=== PATIENT | female | born 1930 | race Caucasian/White ===

== ENCOUNTER 2016-10-16 10:51 | Emergency (ER) | payer OTHER ==
[2016-10-16 11:05] VITALS: TEMP 97.7
[2016-10-16 11:39] LABS: COLOR RED; LEUKOCYTE ESTERASE,URINE 3+ (NEGATIVE); NITRITE,URINE NEGATIVE (NEGATIVE)
[2016-10-16 11:44] LABS: BACTERIA 1+ /hpf (NONE SEEN); RBC,URINE 50-182 /hpf (0-3); WBC,URINE 50-182 /hpf (0-3)
--- NOTE | 2016-10-16 12:02 | EDPHY ---
H & P Time Seen by Provider: 10/16/16 11:15 HPI/ROS: CHIEF COMPLAINT: Blood in urine HISTORY OF PRESENT ILLNESS: History of previous UTI. As some hematuria this morning but without flank pain or fever. REVIEW OF SYSTEMS: No nausea or vomiting or other bleeding PAST MEDICAL HISTORY: Hypertension, thyroid, stroke, TIA, dementia Social history: Here with her . They live in [place] for 50 years. General Appearance: Alert and conversant, cooperative. No abdominal tenderness and no CVA tenderness Emergency Department course/MDM: Urinalysis reviewed shows 3+ leukocyte esterase and 50-182 white blood cells and 50-182 RBC with 1+ bacteria. Macrobid and urine culture and primary care follow-up at [facility]. Does not have presentation of sepsis or pyelonephritis. Smoking Status: Never smoked Constitutional: Initial Vital Signs Temperature (C) 36.5 C 10/16/16 11:03 Heart Rate 83 10/16/16 11:03 Respiratory Rate 18 10/16/16 11:03 Blood Pressure 165/100 H 10/16/16 11:03 O2 Sat (%) 94 10/16/16 11:03 O2 Delivery Mode Room Air Allergies/Adverse Reactions: Sulfa (Sulfonamide Antibiotics) Allergy (Unknown, Verified 02/17/14 13:55) Home Medications: Medication Instructions Recorded Ascorbic Acid [Vitamin C 500 mg 500 mg PO DAILY 08/24/12 (*)] Clopidogrel Bisulfate [Plavix (*)] 75 mg PO DAILY 08/24/12 FLUoxetine [Prozac 10 MG (*)] 10 mg PO DAILY 08/24/12 LORazepam [Ativan (*)] 1 mg PO HS 08/24/12 Levothyroxine [Synthroid 88 mcg 44 mcg PO DAILY06 08/24/12 (*)] Lisinopril/Hydrochlorothiazide 1 each PO DAILY 08/24/12 [Lisinopril-Hctz 10-12.5 mg Tab] Multivitamins [Multivitamin (*)] 1 each PO DAILY 08/24/12 Simvastatin [Zocor 10 mg] 10 mg PO HS 08/24/12 Nitrofurantoin Macrobid [Macrobid] 100 mg PO Q12 #14 cap 10/16/16 MDM/Departure - Depart Disposition: Home, Routine, Self-Care Clinical Impression: Urinary tract infection Condition: Good Instructions: Urinary Tract Infection in Women (ED) Prescriptions: Nitrofurantoin Macrobid [Macrobid] 100 mg PO Q12 #14 cap Referrals: IN STATE,. [Primary Care Provider] - As per Instructions BEN NAVARRETE [Non Staff Provider (MD)] - As per Instructions
[2016-10-16 12:12] VITALS: BP 160/89; PULSE 80; RESP 16; O2SAT 95
== END 2016-10-16 12:11 | disposition home or self-care (01) ==
DX: N39.0 Urinary tract infection, site not specified (principal); B96.20 Unspecified Escherichia coli [E. coli] as the cause of diseases classified elsewhere; I10 Essential (primary) hypertension; Z86.73 Personal history of transient ischemic attack (TIA), and cerebral infarction without residual deficits

== ENCOUNTER 2016-11-25 03:45 | Inpatient (IN) | payer OTHER ==
--- NOTE | 2016-11-25 04:07 | EDPHY ---
H & P HPI/ROS: Chief Complaint: Left-sided weakness HPI: A 86-year-old female with a history of CVA in the past, last seen normal when she went to bed at 9:30 a.m. last evening. Patient woke up this morning to go to the bathroom. states that she was unable to the affectively get to the bathroom. She fell when she tried to get up and had to crawl to the bathroom. helped her onto the toilet. She fell again at that point. Did not hit her head. No loss of consciousness. She was incontinent of urine in the bathroom. EMS was called. On EMS arrival the patient was noted to have a left facial droop left arm and left leg weakness. She was unable to ambulate on her own. Stroke alert was called by EMS. Patient has otherwise been in her usual state of health. She does have a history of prior CVAs in the past with no residual neurologic deficits. ROS: 10 point Review of Systems is negative except as noted in the HPI. PMH: CVA, hypertension, hypothyroidism, hyperlipidemia Medications: Simvastatin, lorazepam, lisinopril, hydrochlorothiazide, levothyroxine, fluoxetine, clopidogrel, ascorbic acid Allergies: Sulfa Social History: No smoking, no alcohol, no recreational drug use, lives with her Family History: non-contributory Physical Exam: Gen: Awake, Alert, No Distress HEENT: Nose: no rhinorrhea Eyes: PERRLA, EOMI Mouth: Moist mucosa Neck: Supple, no JVD Chest: nontender, lungs clear to auscultation Heart: S1, S2 normal, no murmur Abd: Soft, non-tender, no guarding Back: no CVA tenderness, no midline tenderness Ext: no edema, non-tender Skin: no rash Neuro: See NIH stroke score - Medical/Surgical History Hx Asthma: No Hx Chronic Respiratory Disease: No Hx Diabetes: No Hx Cardiac Disease: Yes Hx Renal Disease: No Hx Cirrhosis: No Hx Alcoholism: No Hx HIV/AIDS: No Hx Splenectomy or Spleen Trauma: No Other PMH: htn, hypothyroid, stroke 4 yrs ago, [place], [place], depression, dementia - Social History Smoking Status: Never smoked Constitutional: Initial Vital Signs Temperature (C) 36.0 C 11/25/16 03:45 Heart Rate 71 11/25/16 03:45 Respiratory Rate 18 11/25/16 03:45 Blood Pressure 179/115 H 11/25/16 03:45 O2 Sat (%) 93 11/25/16 03:45 O2 Delivery Mode Room Air Allergies/Adverse Reactions: Sulfa (Sulfonamide Antibiotics) Allergy (Unknown, Verified 11/25/16 04:55) Home Medications: Medication Instructions Recorded Ascorbic Acid [Vitamin C 500 mg 500 mg PO DAILY 08/24/12 (*)] Clopidogrel Bisulfate [Plavix (*)] 75 mg PO DAILY 08/24/12 FLUoxetine [Prozac 10 MG (*)] 10 mg PO DAILY 08/24/12 LORazepam [Ativan (*)] 1 mg PO HS 08/24/12 Levothyroxine [Synthroid 88 mcg 44 mcg PO DAILY06 08/24/12 (*)] Lisinopril/Hydrochlorothiazide 1 each PO DAILY 08/24/12 [Lisinopril-Hctz 10-12.5 mg Tab] Multivitamins [Multivitamin (*)] 1 each PO DAILY 08/24/12 Simvastatin [Zocor 10 mg] 10 mg PO HS 08/24/12 Medical Decision Making ED Course/Re-evaluation: 0346 patient arise, an H assessment done in the [facility]. NIH stroke score noted to be 1. Patient's symptoms are significantly improved from when EMS 1st encounter at her. [address] Dr. Anibal Hills, [facility]. We discussed the fact that the patient was last seen normal at 930 last night. We also discussed the fact that the patient's NIH scale right now is 1. He agrees given the length the time of possible onset and low NIH scale we will stand down the stroke alert at this time. He he is recommending to proceed with the CT and CT angiogram as the patient's renal function is appropriate with a BUN and creatinine is [address] Magaña. No acute bleed or lesions noted. He will review the CT angiogram. 0515 patient's condition has not changed. I have discussed with Lauren at the [facility] telemedicine service. They are happy for the patient to stay at [facility] for her inpatient evaluation. I have paged the hospitalist. [address] Crocker, hospitalist. He will admit to his service. He would like a baby aspirin now. He will see in the ED. Critical Care Time: I spent a total of 40 minutes of critical care time in obtaining history, performing a physical exam, bedside monitoring of interventions, collecting and interpreting tests and discussion with consultants but not including time spent performing procedures. - Data Points Laboratory Results: Laboratory Results 11/25/16 03:40 11/25/16 03:40 11/25/16 11/25/16 11/25/16 04:25 03:46 03:40 WBC RBC Hgb POC Hgb 15.0 gm/dL gm/dL (12.3-15.9) Hct POC Hct 44 % % (35.5-47.5) MCV MCH MCHC RDW Plt Count MPV Neut % (Auto) Lymph % (Auto) O'Brien % (Auto) Eos % (Auto) Baso % (Auto) Nucleat RBC Rel Count Absolute Neuts (auto) Absolute Lymphs (auto) Absolute Monos (auto) Absolute Eos (auto) Absolute Basos (auto) Absolute Nucleated RBC Immature Gran % Immature Gran # POC Sodium 143 mEq/L mEq/L (134-144) Sodium 143 mEq/L mEq/L (134-144) POC Potassium 3.8 mEq/L mEq/L (3.3-5.0) Potassium 4.2 mEq/L mEq/L (3.5-5.2) POC Chloride 107 mEq/L mEq/L (96-108) Chloride 108 mEq/L mEq/L (97-110) Carbon Dioxide 25 mEq/l mEq/l (22-31) Anion Gap 10 mEq/L mEq/L (8-16) POC BUN 17 mg/dL mg/dL (7-23) BUN 18 mg/dL mg/dL (7-23) Creatinine 0.8 mg/dL mg/dL (0.6-1.0) POC Creatinine 0.9 mg/dL mg/dL (0.6-1.2) Estimated GFR > 60 Glucose 86 mg/dL mg/dL (70-100) POC Glucose 90 mg/dL mg/dL (70-100) Calcium 9.5 mg/dL mg/dL (8.5-10.4) Total Bilirubin 1.0 mg/dL mg/dL (0.1-1.4) Conjugated Bilirubin 0.3 mg/dL mg/dL (0.0-0.5) Unconjugated Bilirubin 0.7 mg/dL mg/dL (0.0-1.1) AST 23 IU/L IU/L (14-46) ALT 22 IU/L IU/L (9-52) Alkaline Phosphatase 82 IU/L IU/L (38-126) Total Protein 6.5 g/dL g/dL (6.3-8.2) Albumin 3.9 g/dL g/dL (3.5-5.0) Lipase 227.0 IU/L IU/L (23-300) Urine Color COLORLESS Urine Appearance CLEAR Urine pH 8.0 H (5.0-7.5) Ur Specific [place] 1.021 (1.002-1.030) Urine Protein NEGATIVE (NEGATIVE) Urine Ketones NEGATIVE (NEGATIVE) Urine Blood NEGATIVE (NEGATIVE) Urine Nitrate NEGATIVE (NEGATIVE) Urine Bilirubin NEGATIVE (NEGATIVE) Urine Urobilinogen NEGATIVE EU EU (0.2-1.0) Ur Leukocyte Esterase NEGATIVE (NEGATIVE) Urine Glucose NEGATIVE (NEGATIVE) 11/25/16 03:40 WBC 6.21 10^3/uL 10^3/uL (3.80-9.50) RBC 4.94 10^6/uL 10^6/uL (4.18-5.33) Hgb 14.5 g/dL g/dL (12.6-16.3) POC Hgb Hct 44.1 % % (38.0-47.0) POC Hct MCV 89.3 fL fL (81.5-99.8) MCH 29.4 pg pg (27.9-34.1) MCHC 32.9 g/dL g/dL (32.4-36.7) RDW 14.4 % % (11.5-15.2) Plt Count 255 10^3/uL 10^3/uL (150-400) MPV 10.7 fL fL (8.7-11.7) Neut % (Auto) 42.5 % % (39.3-74.2) Lymph % (Auto) 40.7 % % (15.0-45.0) O'Brien % (Auto) 11.4 % % (4.5-13.0) Eos % (Auto) 3.4 % % (0.6-7.6) Baso % (Auto) 1.8 % H % (0.3-1.7) Nucleat RBC Rel Count 0.0 % % (0.0-0.2) Absolute Neuts (auto) 2.64 10^3/uL 10^3/uL (1.70-6.50) Absolute Lymphs (auto) 2.53 10^3/uL 10^3/uL (1.00-3.00) Absolute Monos (auto) 0.71 10^3/uL 10^3/uL (0.30-0.80) Absolute Eos (auto) 0.21 10^3/uL 10^3/uL (0.03-0.40) Absolute Basos (auto) 0.11 10^3/uL H 10^3/uL (0.02-0.10) Absolute Nucleated RBC 0.00 10^3/uL 10^3/uL (0-0.01) Immature Gran % 0.2 % % (0.0-1.1) Immature Gran # 0.01 10^3/uL 10^3/uL (0.00-0.10) POC Sodium Sodium POC Potassium Potassium POC Chloride Chloride Carbon Dioxide Anion Gap POC BUN BUN Creatinine POC Creatinine Estimated GFR Glucose POC Glucose Calcium Total Bilirubin Conjugated Bilirubin Unconjugated Bilirubin AST ALT Alkaline Phosphatase Total Protein Albumin Lipase Urine Color Urine Appearance Urine pH Ur Specific [place] Urine Protein Urine Ketones Urine Blood Urine Nitrate Urine Bilirubin Urine Urobilinogen Ur Leukocyte Esterase Urine Glucose Point of Care Test Results: 11/25/16 03:46 POC Sodium 143 POC Potassium 3.8 POC Chloride 107 POC BUN 17 POC Creatinine 0.9 POC Glucose 90 Departure - Departure Disposition: [facility] Inpatient Acute Clinical Impression: Transient cerebral ischemia Condition: Fair Referrals: Patient,NotPresent [Primary Care Provider] - As per Instructions NIH Stroke Scale Date of Exam: 11/25/16 Time of Exam: 03:46 Level of Consciousness: Alert LOC Questions: Answers Both LOC Commands: Performs Both Correctly Best Gaze: Normal Visual: No Visual Loss Facial Palsy: Normal Motor Arm-Left: No Drift Motor Arm-Right: Drift Motor Leg-Left: No Drift Motor Leg-Right: No Drift Limb Ataxis: Absent Sensory: Normal Best Language: No Aphasia Dysarthria: Normal Extinction and Inattention (Neglect): No Abnormality NIH Scale Score: 1
[2016-11-25 04:10] LABS: % IMMATURE GRANULYOCYTES 0.2 % (0.0-1.1); ABSOLUTE IMMATURE GRANULOCYTES 0.01 10^3/uL (0.00-0.10); ADD DIFF? NO; ADD MORPH? NO; ADD SCAN? NO; ATYPICAL LYMPHOCYTE FLAG 10 (0-99); FRAGMENT RBC FLAG 0 (0-99); HEMATOCRIT 44.1 % (38.0-47.0); HEMOGLOBIN 14.5 g/dL (12.6-16.3); LEFT SHIFT FLG 0 (0-99); LIPEMIA HEMOLYSIS FLAG 80 (0-99); MEAN CELL HEMOGLOBIN 29.4 pg (27.9-34.1); MEAN CELL HEMOGLOBIN CONCENTR. 32.9 g/dL (32.4-36.7); MEAN CELL VOLUME 89.3 fL (81.5-99.8); MEAN PLATELET VOLUME 10.7 fL (8.7-11.7); PLATELET CLUMPS FLAG 20 (0-99); PLATELET COUNT 255 10^3/uL (150-400); RED BLOOD CELL COUNT 4.94 10^6/uL (4.18-5.33); RED CELL DISTRIBUTION WIDTH 14.4 % (11.5-15.2)
[2016-11-25 04:15] LABS: ALANINE AMINOTRANSFERASE 22 IU/L (9-52); ALBUMIN 3.9 g/dL (3.5-5.0); ALKALINE PHOSPHATASE 82 IU/L (38-126); ANION GAP 10 mEq/L (8-16); ASPARTATE AMINOTRANSFERASE 23 IU/L (14-46); BILIRUBIN-CONJUGATED 0.3 mg/dL (0.0-0.5); BILIRUBIN-UNCONJUGATED 0.7 mg/dL (0.0-1.1); CALCIUM 9.5 mg/dL (8.5-10.4); CARBON DIOXIDE 25 mEq/l (22-31); CHLORIDE 108 mEq/L (97-110); CREATININE 0.8 mg/dL (0.6-1.0); GLOMERULAR FILTRATION RATE > 60; GLUCOSE 86 mg/dL (70-100); POTASSIUM 4.2 mEq/L (3.5-5.2); SODIUM 143 mEq/L (134-144); TOTAL PROTEIN 6.5 g/dL (6.3-8.2)
[2016-11-25 05:03] LABS: COLOR COLORLESS; LEUKOCYTE ESTERASE,URINE NEGATIVE (NEGATIVE); NITRITE,URINE NEGATIVE (NEGATIVE)
[2016-11-25] MEDS ORDERED: ASPIRIN EC 81 MG TAB PO ONE (05:22)
--- NOTE | 2016-11-25 05:34 | CPEKG ---
Heart Rate: 69 RR Interval: 870 P-R Interval: 196 QRSD Interval: 106 QT Interval: 448 QTC Interval: 480 P Allardt: 55 QRS Allardt: -22 T Wave Allardt: 55 EKG Severity - NORMAL ECG - EKG Impression: SINUS RHYTHM Electronically Signed By: Kwame Inman 25-Nov-2016 06:09:22
[2016-11-25] MEDS ORDERED: ONDANSETRON 4 MG/2 ML VIAL IVP PRN (06:19)
[2016-11-25] MEDS ORDERED: ONDANSETRON DISINTEGRATING 4 MG TAB PO PRN (06:19)
[2016-11-25] MEDS ORDERED: NS W/ 20 KCl/L 1,000 ML IV SCH (06:30)
[2016-11-25 06:39] LABS: CHOLESTEROL 139 mg/dL (140-220); CHOLESTEROL/HDL RATIO 2.44 RATIO (1.00-4.44); HIGH DENSITY LIPOPROTEIN 57 mg/dL (40-85); LDL/HDL RATIO 1.07 RATIO (1.00-3.22); LOW DENSITY LIPOPROTEIN 61 mg/dL (80-100); NON-HIGH DENSITY LIPOPROTEIN 82 mg/dL (90-129); TRIGLYCERIDE 107 mg/dL (35-135); VERY LOW DENSITY LIPOPROTEINS 21 mg/dL (8-25)
[2016-11-25 06:51] LABS: TROPONIN I 0.016 ng/mL (0-0.034)
--- NOTE | 2016-11-25 07:22 | PDGENHP ---
History and Physical - Chief Complaint Acute weakness - History of Present Illness PCP: [facility] HPI: 86 yo F p/w acute weakness characterized as generalized with inability to ambulate, assoc w/ a mechanical fall and urinary incontinence, onset of symptoms at 3:30 a.m. on the morning of presentation. Duration was unclear, as her last "normal" time was when she went to bed at 9:30 p.m. 11/24. She reports she had been feeling well on 11/24, w/o any symptoms. Her gave her a glass of water prior to bed (which is a bit atypical for her), and this resulted in her needing to urinate in the concrete inspector hours of 11/25. When she attempted to get to the bathroom, the aforementioned event occurred. She crawled into the bathroom and was unable to get onto the toilette. Her was unable to help her up. EMS was called, and it was reported that she had L facial droop and LLE weakness. A stroke alert at [facility] was activated, and, on presentation it was noted by Dr. Inman that she had some RUE drift; other symptoms had resolved. History Information - Allergies/Home Medication List Allergies/Adverse Reactions: Sulfa (Sulfonamide Antibiotics) Allergy (Unknown, Verified 11/25/16 04:55) Home Medications: Ascorbic Acid [Vitamin C 500 mg (*)] 500 mg PO DAILY 08/24/12 [Last Taken ] Clopidogrel Bisulfate [Plavix (*)] 75 mg PO DAILY 08/24/12 [Last Taken 02/17/14] FLUoxetine [Prozac 10 MG (*)] 10 mg PO DAILY 08/24/12 [Last Taken 02/17/14] LORazepam [Ativan (*)] 1 mg PO HS 08/24/12 [Last Taken 02/16/14] Levothyroxine [Synthroid 88 mcg (*)] 44 mcg PO DAILY06 08/24/12 [Last Taken ] Lisinopril/Hydrochlorothiazide [Lisinopril-Hctz 10-12.5 mg Tab] 1 each PO DAILY 08/24/12 [Last Taken 02/17/14] Multivitamins [Multivitamin (*)] 1 each PO DAILY 08/24/12 [Last Taken 02/17/14] Simvastatin [Zocor 10 mg] 10 mg PO HS 08/24/12 [Last Taken 02/16/14] I have personally reviewed and updated: family history, medical history, social history, surgical history - Past Medical History CVA (reportedly in 2009, but no e/o large vessel occlusion on CTA 2009, no e/o prior CVA on MRI 2011, no residual deficits), hypertension, hyperlipidemia Additional medical history: Hypothyroidism - Surgical History Reports: no pertinent surgical hx - Family History Additional family history: no recent sick family contacts, no hx of CVA - Social History Smoking Status: Never smoked Alcohol Use: None Drug Use: None Additional social history: independent in ADLs, reports shuffling gait but does not use walker/cane, walks stairs Review of Systems ROS: 10pt was reviewed & negative except for what was stated in HPI & below Constitutional: Reports: weakness Neurological: Reports: other (shuffling gait) Physical Exam Temp Pulse Resp BP Pulse Ox 36.0 C 76 18 162/111 H 94 11/25/16 03:45 11/25/16 06:39 11/25/16 06:39 11/25/16 06:39 11/25/16 06:39 Constitutional: no apparent distress, appears nourished, not in pain Eyes: PERRL, anicteric sclera, EOMI Ears, Nose, Mouth, Throat: moist mucous membranes, hard of hearing Cardiovascular: systolic murmur (III/ at sternum and apex), No irregularly irregular, No tachycardia, No edema Respiratory: no respiratory distress, no rales or rhonchi, clear to auscultation Gastrointestinal: normoactive bowel sounds, soft, non-tender abdomen, no palpable masses Genitourinary: no bladder fullness, no bladder tenderness, no renal bruits Musculoskeletal: full muscle strength, no muscle tenderness Neurologic: AAOx3, sensation intact bilaterally, CN II-XII Intact, No weakness ( motor 5/5 bilat UE/LE extremities) Psychiatric: interacting appropriately, not anxious, not encephalopathic, thought process linear, other (concentration 7/7, easily transitions between [place] and yi when prompted) Lab Data & Imaging Review 11/25/16 03:40 11/25/16 03:40 WBC 6.21 10^3/uL (3.80-9.50) 11/25/16 03:40 RBC 4.94 10^6/uL (4.18-5.33) 11/25/16 03:40 Hgb 14.5 g/dL (12.6-16.3) 11/25/16 03:40 POC Hgb 15.0 gm/dL (12.3-15.9) 11/25/16 03:46 Hct 44.1 % (38.0-47.0) 11/25/16 03:40 POC Hct 44 % (35.5-47.5) 11/25/16 03:46 MCV 89.3 fL (81.5-99.8) 11/25/16 03:40 MCH 29.4 pg (27.9-34.1) 11/25/16 03:40 MCHC 32.9 g/dL (32.4-36.7) 11/25/16 03:40 RDW 14.4 % (11.5-15.2) 11/25/16 03:40 Plt Count 255 10^3/uL (150-400) 11/25/16 03:40 MPV 10.7 fL (8.7-11.7) 11/25/16 03:40 Neut % (Auto) 42.5 % (39.3-74.2) 11/25/16 03:40 Lymph % (Auto) 40.7 % (15.0-45.0) 11/25/16 03:40 Sharkey % (Auto) 11.4 % (4.5-13.0) 11/25/16 03:40 Eos % (Auto) 3.4 % (0.6-7.6) 11/25/16 03:40 Baso % (Auto) 1.8 % (0.3-1.7) H 11/25/16 03:40 Nucleat RBC Rel Count 0.0 % (0.0-0.2) 11/25/16 03:40 Absolute Neuts (auto) 2.64 10^3/uL (1.70-6.50) 11/25/16 03:40 Absolute Lymphs (auto) 2.53 10^3/uL (1.00-3.00) 11/25/16 03:40 Absolute Monos (auto) 0.71 10^3/uL (0.30-0.80) 11/25/16 03:40 Absolute Eos (auto) 0.21 10^3/uL (0.03-0.40) 11/25/16 03:40 Absolute Basos (auto) 0.11 10^3/uL (0.02-0.10) H 11/25/16 03:40 Absolute Nucleated RBC 0.00 10^3/uL (0-0.01) 11/25/16 03:40 Immature Gran % 0.2 % (0.0-1.1) 11/25/16 03:40 Immature Gran # 0.01 10^3/uL (0.00-0.10) 11/25/16 03:40 POC Sodium 143 mEq/L (134-144) 11/25/16 03:46 Sodium 143 mEq/L (134-144) 11/25/16 03:40 POC Potassium 3.8 mEq/L (3.3-5.0) 11/25/16 03:46 Potassium 4.2 mEq/L (3.5-5.2) 11/25/16 03:40 POC Chloride 107 mEq/L (96-108) 11/25/16 03:46 Chloride 108 mEq/L (97-110) 11/25/16 03:40 Carbon Dioxide 25 mEq/l (22-31) 11/25/16 03:40 Anion Gap 10 mEq/L (8-16) 11/25/16 03:40 POC BUN 17 mg/dL (7-23) 11/25/16 03:46 BUN 18 mg/dL (7-23) 11/25/16 03:40 Creatinine 0.8 mg/dL (0.6-1.0) 11/25/16 03:40 POC Creatinine 0.9 mg/dL (0.6-1.2) 11/25/16 03:46 Estimated GFR > 60 11/25/16 03:40 Glucose 86 mg/dL (70-100) 11/25/16 03:40 POC Glucose 90 mg/dL (70-100) 11/25/16 03:46 Calcium 9.5 mg/dL (8.5-10.4) 11/25/16 03:40 Phosphorus 3.5 mg/dL (2.5-4.5) 11/25/16 03:40 Total Bilirubin 1.0 mg/dL (0.1-1.4) 11/25/16 03:40 Conjugated Bilirubin 0.3 mg/dL (0.0-0.5) 11/25/16 03:40 Unconjugated Bilirubin 0.7 mg/dL (0.0-1.1) 11/25/16 03:40 AST 23 IU/L (14-46) 11/25/16 03:40 ALT 22 IU/L (9-52) 11/25/16 03:40 Alkaline Phosphatase 82 IU/L (38-126) 11/25/16 03:40 Troponin I 0.016 ng/mL (0-0.034) 11/25/16 03:40 Total Protein 6.5 g/dL (6.3-8.2) 11/25/16 03:40 Albumin 3.9 g/dL (3.5-5.0) 11/25/16 03:40 Triglycerides 107 mg/dL (35-135) 11/25/16 03:40 Cholesterol 139 mg/dL (140-220) L 11/25/16 03:40 Cholesterol Risk Factr 0.4 (0.2-1.0) 11/25/16 03:40 LDL Cholesterol, Calc 61 mg/dL (80-100) L 11/25/16 03:40 LDL Risk Factor 0.5 (0.2-1.0) 11/25/16 03:40 VLDL Cholesterol 21 mg/dL (8-25) 11/25/16 03:40 Non-HDL Cholesterol 82 mg/dL (90-129) L 11/25/16 03:40 HDL Cholesterol 57 mg/dL (40-85) 11/25/16 03:40 LDL/HDL Ratio 1.07 RATIO (1.00-3.22) 11/25/16 03:40 Cholesterol/HDL Ratio 2.44 RATIO (1.00-4.44) 11/25/16 03:40 Lipase 227.0 IU/L (23-300) 11/25/16 03:40 TSH 3.410 uIU/mL (0.465-4.680) 11/25/16 03:40 Urine Color COLORLESS 11/25/16 04:25 Urine Appearance CLEAR 11/25/16 04:25 Urine pH 8.0 (5.0-7.5) H 11/25/16 04:25 Ur Specific [place] 1.021 (1.002-1.030) 11/25/16 04:25 Urine Protein NEGATIVE (NEGATIVE) 11/25/16 04:25 Urine Ketones NEGATIVE (NEGATIVE) 11/25/16 04:25 Urine Blood NEGATIVE (NEGATIVE) 11/25/16 04:25 Urine Nitrate NEGATIVE (NEGATIVE) 11/25/16 04:25 Urine Bilirubin NEGATIVE (NEGATIVE) 11/25/16 04:25 Urine Urobilinogen NEGATIVE EU (0.2-1.0) 11/25/16 04:25 Ur Leukocyte Esterase NEGATIVE (NEGATIVE) 11/25/16 04:25 Urine Glucose NEGATIVE (NEGATIVE) 11/25/16 04:25 Visualized and Interpreted EKG results: Yes EKG Interpretation: Positive for: other (Q in III, NSR) Assessment & Plan Assessment: 86 yo F p/w acute generalized weakness Plan: 1. Generalized weakness. Acute, new problem, further w/u indicated. Unclear if this was a TIA vs. early presenting symptom of a neurologic movement disorder. - outside records reviewed (H&P by Dr. Trevor Shukla 02/17/14 for syncope, no e/o Afib at that time, does have mod-sev MR and LA dilation which would predispose to Afib) - monitor on tele for Afib - obtained trop, TSH, lipid panel - no e/o infxn symptoms, neg UA - neuro exam completely normal on reassessment at 7 a.m., indicating transient phenom. - CTA w/o large vessel occlusions, MRI from 2011 w/o e/o prior infarcts - get PT/OT evals to gauge safety at home - get Neuro consult today to consider whether this is more c/w a movement disorder or transient global amnesia/sleep inertia leading to her urinary incontinence/fluctuation in level of functioning - d/w Dr. Inman, advised him to empirically give ASA 81 in ED (already taking Plavix at home), and will defer to Neuro whether to proceed w/ empiric dual anti -platelet Rx vs. remaining on single agent Plavix 2. HTN. Chronic, cont home Rx once reconciled Diet. Cardiac PPx. High risk, SCDs today, Lovenox if remains o/n Code. DNR per patient, MPOA Dispo. ADD 11/25 vs. 11/26, pending eval above. Dr. Inman reports to me that [facility] has been notified of patient's presentation and offered repatriation; they have deferred accepting patient at [facility] at this time.
[2016-11-25] MEDS: ENOXAPARIN 40 MG/0.4 ML SYR SC SCH (11:05)
[2016-11-25] MEDS ORDERED: LISINOPRIL/HCTZ 10/12.5 MG 1 EA TAB PO SCH ×2 (11:08→11:10)
[2016-11-25] MEDS ORDERED: LABETALOL HCL 5 MG/ML 20 ML MDV IVP PRN (11:12)
--- NOTE | 2016-11-25 14:49 | HOSPPROG ---
Hospitalist Progress Note Assessment/Plan: * Acute CVA -on Plavix at home - ? add ASA -check ECHO, tele -PT/OT * Permissive HTN -continue home lisinopril/HCTZ but allow BP to run high -IV labetolol prn per stroke protocol * Dementia - at baseline * Hyperlipidemia -LDL good on pravastatin Subjective: want to go home Objective: Vital Signs Temp Pulse Resp BP Pulse Ox 36.0 C 76 18 162/111 H 94 11/25/16 03:45 11/25/16 06:39 11/25/16 06:39 11/25/16 06:39 11/25/16 06:39 11/24/16 11/25/16 11/26/16 05:59 05:59 05:59 Output Total 900 Balance -900 CTA head/neck - no blockage MRI reviewed with Dr. Temple - positive for small CVA Laboratory Tests 11/25/16 03:40 Triglycerides 107 Cholesterol 139 L LDL Cholesterol, Calc 61 L HDL Cholesterol 57 TSH 3.410 - Physical Exam Constitutional: no apparent distress, appears nourished, not in pain Cardiovascular: regular rate and rhythym, no murmur, rub, or gallop Respiratory: no respiratory distress, no rales or rhonchi, clear to auscultation Gastrointestinal: normoactive bowel sounds, soft, non-tender abdomen, no palpable masses Skin: no rashes or abrasions, no fluctuance, no induration Neurologic: weakness (LUE), facial droop, No AAOx3, No CN II-XII Intact (tongue deviates to right) Psychiatric: anxious, agitated, poor insight, poor judgement, poor memory, No interacting appropriately, No thought process linear ICD10 Worksheet Patient Problems: Problems Problem Status Onset Transient cerebral ischemia Acute Syncope Acute
--- NOTE | 2016-11-25 17:05 | GCON ---
[f rep st] CONSULTATION DATE OF CONSULTATION: 11/25/2016 REFERRING PHYSICIAN: Maik Crocker MD CHIEF COMPLAINT: Left-sided weakness. HISTORY OF PRESENT ILLNESS: The patient is a very pleasant 86-year-old lady who had a TIA or stroke 6 years ago with right facial weakness only. Last night she went to bed in her normal state and woke up early this morning and fell into her 's single bed and had urinary incontinence. Initially, there was no lateralized weakness noted. However, EMS was activated and noted left-sided facial and arm droop. She was brought in and evaluated by a stroke alert. Initially, she had an NIH scale of 1 with resolving deficits. Therefore thrombolysis was not given. She had a head CT, CTA of the head and neck. Head CT showed senescent changes. CTA of the head and neck did not show any acute vascular abnormalities. She had a patent vertebral and carotid arteries. There is no hemodynamic significant stenosis or intraluminal thrombus identified in her intracranial vasculature. She has been walked by PT around ICU and noted to have small shuffling steps which is her baseline at home. She does have falls regularly at home at least once a quarter according to her . She has been recommended to use a walker before but does not use it and continues to have some left arm weakness. She had an MRI of brain which does show a small acute diffusion positive infarct in her right centrum semiovale. She has no history of atrial fibrillation. Telemetry does not reveal any atrial fibrillation, and EKG shows normal sinus rhythm. REVIEW OF SYSTEMS: A 10-point review of system was done and only pertinent to HPI. Past medical history, social history, family history, home medications please refer to Dr. Crocker's H and P. ALLERGIES: She has allergies to sulfa. PHYSICAL EXAM: VITAL SIGNS: Blood pressure 160/111, temperature 36.0, heart rate 76. GENERAL: In no acute distress. HIGHER MENTAL FUNCTION: She has some dementia with a slums score of 8/24. CRANIAL NERVE EXAM: She has right- sided facial weakness which makes assessing the left side of the face difficult. I could not detect any definitive left-sided facial weakness. Her nasolabial fold is actually more depressed on the right versus the left. Her speech is clear. On motor exam, she has left-sided drift of the left upper extremity. In the lower extremities, her strength is equal. Sensation is normal throughout. IMPRESSION/PLAN: 1. Stroke. The patient has had a small infarct in the right centrum semiovale. Certainly it may be an embolic phenomenon from the heart or atherosclerotic debris from a large vessel such as aortic arch, etc. I had a long discussion with the family regarding possible mechanisms of stroke, the patient's moderate dementia and philosophy of care, including her Pr-Deq-Nzfkcoibzwp order. Overall, the family wishes not to do any aggressive testing at this point. We have also discussed that she is a fall risk as she is falling once every 3 months according to her (query vascular parkinsonism), and they do not wish or feel she would be a good candidate to be on anticoagulation. Therefore, I think it would be a reasonable course to add a baby aspirin to her Plavix 75 mg daily to add some further vascular prophylaxis. Going further, I think she needs some therapies and evaluation by case management for optimal and safe placement from here, whether it be going home with home care versus inpatient rehabilitation. I did go into quite a bit of detail with the family, and they had many questions, and internal discussions about this which need to be further resolved. We spent is 70 minutes of floor time today with the family; over 50% in counseling with the family today and coordination of care. I also spoke with case management about the case. They will be meeting with the family which I appreciate. No further recommendations outside of adding a baby aspirin to the Plavix. Based on the family wishes, no further recommendations in terms of further diagnostics at this point. It will be primarily a question of how we will deliver further therapies and where will deliver further therapies to this patient based on their preference is and what case management can help coordinate. We will continue to follow as needed. They can f/u with me as an outpatient. Thank you for this consultation. /[id number]/MODL MTDD
[2016-11-25] MEDS ORDERED: NON-FORMULARY NEW DRUG (Simvastatin [Zocor 10 Mg] 10 MG) PO SCH (18:00)
[2016-11-25] MEDS: PRAVASTATIN SODIUM 20 MG TAB PO SCH (18:41)
[2016-11-25] MEDS: LORazepam 1 MG TAB PO SCH (20:12)
[2016-11-26 05:21] LABS: % IMMATURE GRANULYOCYTES 0.2 % (0.0-1.1); ABSOLUTE IMMATURE GRANULOCYTES 0.01 10^3/uL (0.00-0.10); ADD DIFF? NO; ADD MORPH? NO; ADD SCAN? NO; ATYPICAL LYMPHOCYTE FLAG 0 (0-99); FRAGMENT RBC FLAG 0 (0-99); HEMATOCRIT 45.4 % (38.0-47.0); HEMOGLOBIN 14.7 g/dL (12.6-16.3); LEFT SHIFT FLG 0 (0-99); LIPEMIA HEMOLYSIS FLAG 80 (0-99); MEAN CELL HEMOGLOBIN 28.8 pg (27.9-34.1); MEAN CELL HEMOGLOBIN CONCENTR. 32.4 g/dL (32.4-36.7); MEAN CELL VOLUME 88.8 fL (81.5-99.8); MEAN PLATELET VOLUME 10.1 fL (8.7-11.7); PLATELET CLUMPS FLAG 10 (0-99); PLATELET COUNT 263 10^3/uL (150-400); RED BLOOD CELL COUNT 5.11 10^6/uL (4.18-5.33); RED CELL DISTRIBUTION WIDTH 14.4 % (11.5-15.2)
[2016-11-26 05:35] LABS: POTASSIUM 4.4 mEq/L (3.5-5.2)
[2016-11-26 05:36] LABS: ANION GAP 8 mEq/L (8-16); CALCIUM 9.3 mg/dL (8.5-10.4); CARBON DIOXIDE 24 mEq/l (22-31); CHLORIDE 108 mEq/L (97-110); CREATININE 0.7 mg/dL (0.6-1.0); GLOMERULAR FILTRATION RATE > 60; GLUCOSE 96 mg/dL (70-100); MAGNESIUM 2.2 mg/dL (1.6-2.3); SODIUM 140 mEq/L (134-144)
[2016-11-26] MEDS: LEVOTHYROXINE 88 MCG TAB PO SCH (05:40)
[2016-11-26 05:45] LABS: TROPONIN I < 0.012 ng/mL (0-0.034)
[2016-11-26] MEDS ORDERED: LISINOPRIL/HCTZ 10/12.5 MG 1 EA TAB PO SCH ×2 (09:00→11:18)
[2016-11-26] MEDS ORDERED: ASPIRIN EC 81 MG TAB PO SCH (11:30)
--- NOTE | 2016-11-26 11:43 | CPEKG ---
Heart Rate: 86 RR Interval: 698 P-R Interval: 192 QRSD Interval: 104 QT Interval: 400 QTC Interval: 479 P Astoria: 47 QRS Astoria: -13 T Wave Astoria: 6 EKG Severity - BORDERLINE ECG - EKG Impression: SINUS RHYTHM EKG Impression: BORDERLINE T ABNORMALITIES, ANTERIOR LEADS Electronically Signed By: Kevin Webster 26-Nov-2016 16:00:31
[2016-11-26] MEDS: ENOXAPARIN 40 MG/0.4 ML SYR SC SCH (14:29)
[2016-11-26] MEDS: FLUoxetine 20 MG CAP PO SCH (14:29)
[2016-11-26] MEDS: CLOPIDOGREL BISULFATE 75 MG TAB PO SCH (14:29)
--- NOTE | 2016-11-26 14:45 | ECHO ---
[id number] + + [address] : : [place] [address] : : [phone] + + Adult Echocardiographic Report + --------+ :Name: Shabbir ROSALES Date: 11/26/2016 01:39 PM : : Hospital Admission Number: [id number] Locat ion: 241: :: 1930 Gender: Female Height: 66 in : :Age: 86 yrs Race: WH Weight: 122 l b : :Reason For Study: Syncope : : BSA: 1.6 mete rs2 : + --------+ MMode/2D Measurements \T\ Calculations LVIDd: 4.6 cm EDV(Teich): 99.0 ml MV Diam: 3.9 cm Ao root diam: 3.5 cm LA dimension: 4.0 cm LVOT diam: 1.9 cmLVLd ap4: 6.6 cm SV(MOD-sp4): LVOT area: EDV(MOD-sp4): 30.0 ml 2.8 cm2 46.0 ml LVLs ap4: 6.0 cm ESV(MOD-sp4): 16.0 ml EF(MOD-sp4): 65.2 % Normal Measurement Values: + + :LVIDd (3.5-5.7cm) IVSd (0.6-1.1cm) LVPWd (0.6-1.1cm) Aortic Root (2.0-3.7cm)Left Atrium (1.5-4.0cm): :LV Vol(d) (76-115ml) LV Vol(s) (29-48ml) Ejec Fraction (50-65%)PV Piter (0.6- 1.2m/s) TV Piter (0.4-1.0m/s) : :MV E Piter (0.8-1.0m/s)MV A Piter (0.3-1.0m/s)LVOT Piter (0.7-1.2m/s) Asc Ao Piter ( 0.9-1.8m/s) : + + Doppler Measurements \T\ Calculations MV E max piter: MV V2 mean: Ao mean PG: AI max piter: 90.8 cm/sec 70.4 cm/sec 2.7 mmHg 384.4 cm/sec MV A max piter: MV mean P.2 mmHgAo V2 mean: AI max P.1 mmHg 86.9 cm/sec MV V2 VTI: 32.5 cm 77.8 cm/sec AI dec slope: MV E/A: 1.0 MV area (1 diam): Ao V2 VTI: 155.9 cm/sec2 11.9 cm2 20.8 cm AI P1/2t: 722.0 msec LEOBARDO(I,D): 1.8 cm2 MVA(VTI): 1.2 cm2 MV Flow area(1diam): 11.9 cm2 LV V1 max: MR max piter: MR(RF 1 diam): SV(MV 1 diam): 71.6 cm/sec 441.8 cm/sec 11.0 % 386.9 ml LV V1 max PG: MR max P.1 mmHg SI(MV 1 diam): 2.0 mmHg 238.7 ml/m2 LV V1 mean PG: SV(LVOT): 37.7 ml 1.1 mmHg LV V1 mean: 47.7 cm/sec LV V1 VTI: 13.4 cm TR max piter: RF(MV,Ao)(1 diam): 241.6 cm/sec 0.49 TR max PG: RF(MV,LVOT)(1diam): 23.4 mmHg 0.90 RAP systole: 5.0 mmHg RVSP(TR): 28.4 mmHg Left Ventricle The left ventricle is normal in size. There is mild concentric left ventricular hypertrophy. Left ventricular systolic function is normal. Ejection Fraction = 70-75%. There is Doppler evidence for diastolic dysfunction. No regional wall motion abnormalities noted. Right Ventricle The right ventricle is normal in size and function. Atria The left atrium is severely dilated. Right atrial size is normal. The interatrial septum is intact with no evidence for an atrial septal defect. Mitral Valve Moderate to severe posterior mitral leaflet annular calcification. Prolapse of the posterior mitral leaflet(s). There is no mitral valve stenosis. The mitral regurgitant jet is anteriorly directed, which is consistent with posterior leaflet pathology. There is moderate mitral regurgitation. Tricuspid Valve Normal tricuspid valve. There is mild tricuspid regurgitation. Right ventricular systolic pressure is normal. Aortic Valve The aortic valve is trileaflet. The aortic valve opens well. Mild aortic valve calcification. There is no aortic stenosis. Mild aortic regurgitation. Pulmonic Valve The pulmonic valve is not well visualized. There is no pulmonic valvular regurgitation. Great Vessels The aortic root is normal size. Pericardium/Pleural There is no pericardial effusion. Conclusion A complete two-dimensional transthoracic echocardiogram was performed (2D, M-mode, Doppler and color flow Doppler). Left ventricular systolic function is normal. There is mild concentric left ventricular hypertrophy. Ejection Fraction = 70-75%. There is Doppler evidence for diastolic dysfunction. The left atrium is severely dilated. Moderate to severe posterior mitral leaflet annular calcification. Prolapse of the posterior mitral leaflet(s). The mitral regurgitant jet is anteriorly directed, which is consistent with posterior leaflet pathology. There is moderate mitral regurgitation. There is mild tricuspid regurgitation. Right ventricular systolic pressure is normal. Mild aortic valve calcification. Mild aortic regurgitation. Final Reading Physician: Ricky Davila signed on 11/26/2016 02:44 PM Ordering Physician: Susan Fonseca Performed By: Bharti Simon, YANICK
--- NOTE | 2016-11-26 14:53 | GCON ---
[f rep st] CONSULTATION CARDIOLOGY CONSULTATION. DATE OF CONSULTATION: 11/26/2016 We are asked by Dr. Sophie Hernandez of [facility] to evaluate the patient for her episode of slow heart rate, consistent with an AV dissociation. HISTORY OF PRESENT ILLNESS: The patient is an 86-year-old female with moderate dementia, hypertension, previous strokes, dyslipidemia, hypothyroidism, sleep apnea, varicose veins, who is admitted with an episode of acute urinary incontinence with associated mechanical fall and inability to ambulate. Due to her moderate dementia her is present and answers many of the questions. He reports that she was in her usual state of health the evening prior to her admission. She had drank a glass of water, which is not typical for her. At approximately 3:30 she tried to get up out of bed to presumably urinate, however , she urinated as soon as she stood up and then proceeded to fall. Her was unable to get her off the floor, and therefore called EMS for assistance. She was brought in as a stroke alert due to some question of facial droop and left lower extremity weakness. She had extensive imaging, and was found to have a small right-sided centrum semiovale infarct of undetermined age. This morning she had completed a walk with PT. She was back in her room and her daughter was attending to her at the time. Her daughter noted that she gasped for air and then was somewhat slumped in the chair. A stroke alert was called at that time, and she was re-imaged with CT and there were no acute findings. On telemetry she was found to have a very slow heart rate, and her heart rate slowed to 30s, and this spontaneously resolved on its own. Again, at 12:30 she was noted to have atrial tachycardia at a rate of 150. This was asymptomatic. Overall she has been functional at home. She resides independently with her . She still does laundry and takes the laundry up the stairs and then hangs it to dry outside. She has some short-term memory deficits but is otherwise intact in regard to her long-term memory. They deny any recent fevers or chills, nor has she been complaining of palpitations, presyncope, syncope or dyspnea or chest pain. A couple of times a week she will be noted to be pale in appearance, and will ask her to sit and cuddle her. He will note that her vital seem mostly within normal limits in regard to her heart rate but her respirations seem somewhat elevated. He on occasion checks her pulse ox and he feels they are within normal limits. While she is asleep if he hears irregular breathing he will check her pulse ox, and he notes that those are normal as well. REVIEW OF SYSTEMS: As per HPI. A complete 10-point review of systems was obtained and is negative except for what is dictated. PAST MEDICAL HISTORY: 1. CVA reportedly in 2010. 2. Hypertension. 3. Dyslipidemia. 4. Sleep apnea, untreated. 5. Moderate dementia. 6. History of varicose veins, wearing compressive stockings. PAST SURGICAL HISTORY: No surgeries reported. FAMILY HISTORY: A sister had atrial fibrillation, in the hospital of unclear causes. SOCIAL HISTORY: Patient is , she was never a smoker. She does not drink any significant amount of alcohol. Her is Maik, and they have been for 64 years. He is a dentistry professor at [employer]. He has a son, Rowdy, who is present in the room, and daughter, Adalgisa , who is involved in her care. MEDICATIONS: Home medications include vitamin C, clopidogrel, Prozac, lorazepam , levothyroxine, lisinopril with hydrochlorothiazide and multivitamin. ALLERGIES: To sulfonamides. PHYSICAL EXAM: VITAL SIGNS: Blood pressure 139/92, heart rate 74, respirations 18, O2 saturation 95% on room air, temperature of 98.2 degrees Fahrenheit. GENERAL: She is a very pleasant female who appears somewhat pale, she is oriented to person and place. HEENT: Normocephalic, atraumatic. NECK: Supple, with no carotid bruits. HEART: Regular rate and rhythm with a holosystolic murmur auscultated. LUNGS: Clear. ABDOMEN: Soft, nontender, nondistended, with normoactive bowel sounds. : With no Allen present. SKIN : Warm and dry. PSYCH: Somewhat anxious-appearing but otherwise appropriate. LABORATORIES: CBC with WBC of 6.61, hemoglobin 14.7, hematocrit 45.4, platelet count 263, BMP with sodium of 140, potassium 4.4, chloride 108, CO2 of 24, BUN 10, creatinine 0.7, glucose 127. A 12-lead ECG is personally interpreted, demonstrates sinus rhythm with left atrial abnormality and low voltage. I have spoken with Dr. Hernandez regarding patient's care. 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 1. Sinus arrest found on telemetry during episode of syncope. She is offered permanent pacing for curative purposes. This was discussed with her family, Dr. Ortiz has also spoken with them, and they are considering this as an option. 2. Severe mitral regurgitation. This is noted on previous echoes, an echo is repeated now and does confirm this. She is likely not a good surgical candidate given her advanced age. Should they wish to proceed with further treatment she could be considered for a mitral valve clip repair at [facility]. 3. Hypertension. She has been granted permissive hypertension given question of recent stroke. This may be managed with the hospital service further. 4. History of cerebrovascular accident and memory deficits. Patient is currently at her baseline according to family. 5. Dyslipidemia, continue statin. /[id number]/MODL MTDD
--- NOTE | 2016-11-26 15:12 | HOSPPROG ---
Hospitalist Progress Note Assessment/Plan: Acute stroke alert called this am. Patient found acutely unresponsive. Stat head CT negative. I spoke with [facility] - + CVA on MRI yesterday so not tpa candidate. Some question of seizure like behavior. I spoke with Dr. Russell - thinks seizure is unlikely based on location of CVA on MRI. Tele strips reviewed, she became acutely bradycardic during episode. reports she has similar milder episodes at home. Strips reviewed with cardiology. C/w AV dissociation and pacemaker indicated. * AV dissociation with acute syncope -pacemaker in am * Acute CVA -on Plavix at home - add ASA 81mg * HTN -increase home lisinopril/HCTZ to full tab daily * Dementia - at baseline * Hyperlipidemia -LDL good on pravastatin CC time spent - 45 minutes Subjective: Mental status returned to baseline after event this am Objective: Vital Signs Temp Pulse Resp BP Pulse Ox 36.8 C 74 18 157/100 H 95 11/26/16 08:00 11/26/16 08:00 11/26/16 08:00 11/26/16 14:30 11/26/16 08:00 11/25/16 11/26/16 11/27/16 05:59 05:59 05:59 Output Total 75 Balance -75 Case d/w Susan Fonseca cardiology and Dr. Sánchez - sounds more like syncope, cardiac tele strips reviewed - enrique during episode ECHO - MR, normal EF EKG viewed, my personal interpretation is - NSR - Physical Exam Constitutional: no apparent distress, appears nourished, not in pain Cardiovascular: regular rate and rhythym, no murmur, rub, or gallop Respiratory: no respiratory distress, no rales or rhonchi, clear to auscultation Gastrointestinal: normoactive bowel sounds, soft, non-tender abdomen, no palpable masses Skin: no rashes or abrasions, no fluctuance, no induration Neurologic: No AAOx3 Psychiatric: encephalopathic, poor insight, poor judgement, poor memory, No depressed, No agitated ICD10 Worksheet Patient Problems: Problems Problem Status Onset Transient cerebral ischemia Acute Syncope Acute
[2016-11-26] MEDS ORDERED: BACITRACIN IRRIGATION/NS 50,000 UNITS/1,000 ML BTL IRR ONE (15:47)
[2016-11-26] MEDS ORDERED: DIAZEPAM 5 MG TAB PO ONE ×2 (15:47→16:02)
[2016-11-26] MEDS ORDERED: diphenhydrAMINE 25 MG CAP PO ONE (15:47)
--- NOTE | 2016-11-26 15:58 | NEUROPROG ---
Assessment: 1. Stroke 2. Convulsive syncope 3. Cardiac dysrhythmia 35 Total minutes [id number] time; over 50% counseling family and patient regarding the following: The patient had syncopal episode today from underlying cardiac dysrhythmia. Please see Cardiology notes for details. They wanted neurologic perspective on situation. Essentially, for my understanding, if left untreated, she would be at risk for further cardiogenic syncope and falls. This could certainly lead to morbidity such as hip fractures and related mortality etc. Therefore pacemaker placement certainly could be viewed from a palliative, quality of life standpoint. I think would be reasonable from a neurologic standpoint to proceed with pacemaker placement in light of her dementia. There were counseled to such. Ultimately, this will be a decision that needs to be made by the patient and her family. They understand this. They will think about this and let Dr. Ortiz know about their decision. They will be speaking to case management as well regarding disposition. no further recommendations now. She will continue anti thrombotics with aspirin 81 mg plus Plavix. we will continue to follow up p.r.n. Subjective: syncopal episode today Objective: Vital Signs Temp Pulse Resp BP Pulse Ox 36.8 C 74 18 157/100 H 95 11/26/16 08:00 11/26/16 08:00 11/26/16 08:00 11/26/16 14:30 11/26/16 08:00 11/25/16 11/26/16 11/27/16 05:59 05:59 05:59 Output Total 75 Balance -75 awake and alert Allergies/Adverse Reactions: Sulfa (Sulfonamide Antibiotics) Allergy (Unknown, Verified 11/25/16 04:55)
[2016-11-26] MEDS ORDERED: NS 1,000 ML IV SCH (16:00)
[2016-11-26] MEDS ORDERED: ceFAZolin 2 GM/DEXTROSE 100 ML IV ONE (16:02)
[2016-11-26] MEDS ORDERED: LIDOCAINE 1% 30 ML SDV ONE (16:08)
[2016-11-26] MEDS ORDERED: fentaNYL 100 MCG/2 ML INJ ONE (16:09)
[2016-11-26] MEDS ORDERED: MIDAZOLAM 2 MG/2 ML VIAL ONE (16:09)
[2016-11-26] MEDS ORDERED: BUPIVACAINE 0.5% 30 ML SDV ONE (16:09)
[2016-11-26] MEDS ORDERED: IOPAMIDOL (ISOVUE-300) 100 ML BTL IV ONE (17:01)
[2016-11-26 17:39] LABS: INR 1.14 (0.83-1.16); PROTIME(PATIENT) 14.5 SEC (12.0-15.0)
--- NOTE | 2016-11-26 20:14 | GCON ---
[f rep st] CONSULTATION DATE OF CONSULTATION: 11/26/2016 HISTORY OF PRESENT ILLNESS: The patient is an 86-year-old female who was admitted yesterday with ac toni weakness and thought to be a TIA. She was relatively stable overnight and was working with [facility] this morning. Shortly after was sitting in her chair when she developed acute onset of unresponsiveness. The family thought that there was some tremor activity just before this occurred , but there was no loss of bowel or bladder function and no tachycardia. In fact, the patient was b radycardic. At this point, I was called to see this patient rather urgently. I arrived at the [facility] to find her with her eyes open but completely unresponsive even to sternal rub. We placed her i n her bed, and I checked her airway with the [place]. She had a very brisk gag and seemed to be mo re alert at this moment. The time frame between my initial evaluation and when she became more resp onsive was about 60 seconds. I asked her to say hello, she was able to speak well. She went for a CT scan looking for evidence of stroke, and there was no evidence there. There was some concern abo ut seizure activity, but there was very little to support this at that time. Later in the day, she had gotten much better. She still had some right upper extremity pronator drift which was present o n arrival and no other issues. PAST MEDICAL HISTORY: 1. Stroke in 2009, it is hard to know if that actually happened. 2. Hypertension. 3. Hyperlipidemia. 4. Hypothyroidism. PAST SURGICAL HISTORY: None. FAMILY HISTORY: Noncontributory. SOCIAL HISTORY: She is a nonsmoker. No alcohol or IV drug use. She is independent. Her s ays she has a shuffling gait and has some underlying dementia. They are not sure if it is Parkinson 's or Alzheimer disease, but he said that she frequently has episodes of lightheadedness with not re al syncope. She lies down on the sofa for 20 minutes and is able to resume active care without any issues. MEDICATIONS: Include Tylenol, aspirin, Plavix, Lovenox, Prozac, Zestoretic, labetalol, Synthroid, A tivan, Zofran, Pravachol. PHYSICAL EXAMINATION: GENERAL: At the time that I evaluated her, she was, as I said, quite unrespo nsive on arrival and more responsive just before she went for a head CT. She did say hello as I juan jose d after about 60 seconds. VITAL SIGNS: Her heart rate at that time was about 50 in sinus bradycard ia with a blood pressure of about 120/77. HEENT: Her pupils were equally round and reactive to lig ht though there was deviation of her left eye toward the left side, but she had extraocular movement s intact. I did not appreciate a facial droop on her, and otherwise, her cranial nerves appeared to be normal as best I could tell. RESPIRATORY: Breath sounds were clear to auscultation bilaterally without wheezes, rubs, or rales. HEART: Slow but had a regular rate and rhythm without obvious mu rmur. ABDOMEN: Soft, nontender, nondistended without hepatosplenomegaly. When she came about, she was able to follow some simple commands and had appeared to have 5/5 strength in all 4 extremities. SKIN: Clean and dry without evidence of rash. OBJECTIVE DATA: White count of 6.6, hematocrit 45, and platelets of 263. Basic metabolic panel was essentially normal. Troponin was 0.016 followed by 0.012. Urine was unremarkable. Her head CT showed no hemorrhage, mass effect, or acute infarct. She had moderate microvascular dis ease. There was a hypodensity in the periventricular white matter which was seen on a recent MRI. ASSESSMENT AND PLAN: Likely syncope perhaps related to her bradycardia. She may have autonomic ins tability related to as yet diagnosed Parkinson disease. Cardiology is going to come see her and jonas partida at the [facility] as well to make sure that there is no indication for pacemaker implantation. I do n ot believe that she had syncope or additional stroke at this time. She was not hypotensive. She wa s not tachycardic and was remarkably cooperative making a postictal state fairly unlikely. Neurolog y has also been involved and will be seeing her again shortly to followup on these things. Her airw ay has been well protected, and she does not require any urgent intervention at this time, but other garcia I will continue to follow. /[id number]/MODL
[2016-11-26] MEDS: LORazepam 1 MG TAB PO SCH (20:34)
[2016-11-26] MEDS: ACETAMINOPHEN 325 MG TAB PO PRN (21:43)
[2016-11-27] MEDS: ACETAMINOPHEN 325 MG TAB PO PRN ×2 (03:09→09:22)
[2016-11-27 04:26] LABS: % IMMATURE GRANULYOCYTES 0.3 % (0.0-1.1); ABSOLUTE IMMATURE GRANULOCYTES 0.03 10^3/uL (0.00-0.10); ADD DIFF? NO; ADD MORPH? NO; ADD SCAN? NO; ATYPICAL LYMPHOCYTE FLAG 0 (0-99); FRAGMENT RBC FLAG 0 (0-99); HEMATOCRIT 39.7 % (38.0-47.0); LEFT SHIFT FLG 10 (0-99); LIPEMIA HEMOLYSIS FLAG 80 (0-99); MEAN CELL HEMOGLOBIN 29.2 pg (27.9-34.1); MEAN CELL HEMOGLOBIN CONCENTR. 32.7 g/dL (32.4-36.7); MEAN CELL VOLUME 89.2 fL (81.5-99.8); MEAN PLATELET VOLUME 10.4 fL (8.7-11.7); PLATELET CLUMPS FLAG 10 (0-99); PLATELET COUNT 237 10^3/uL (150-400); RED BLOOD CELL COUNT 4.45 10^6/uL (4.18-5.33); RED CELL DISTRIBUTION WIDTH 14.5 % (11.5-15.2)
[2016-11-27 04:45] LABS: ANION GAP 10 mEq/L (8-16); CALCIUM 8.7 mg/dL (8.5-10.4); CARBON DIOXIDE 23 mEq/l (22-31); CHLORIDE 108 mEq/L (97-110); GLOMERULAR FILTRATION RATE 52; GLUCOSE 124 mg/dL (70-100); POTASSIUM 4.1 mEq/L (3.5-5.2); SODIUM 141 mEq/L (134-144)
[2016-11-27] MEDS: LEVOTHYROXINE 88 MCG TAB PO SCH (05:35)
[2016-11-27] MEDS: PRAVASTATIN SODIUM 20 MG TAB PO SCH ×2 (07:09→18:44)
[2016-11-27] MEDS: FLUoxetine 20 MG CAP PO SCH (09:22)
[2016-11-27] MEDS: CLOPIDOGREL BISULFATE 75 MG TAB PO SCH (09:22)
--- NOTE | 2016-11-27 09:42 | SOAPPROG ---
SOAP Progress Note Assessment/Plan: Assessment/Plan This is a 86 yr old with symptomatic sinus arrest with escape junctional rhythm who had a pacemaker implanted. Post pacemaker she is complaining of SOA. CXR shows well placed leads with no pneumothorax. Leads checked and numbers/ parameters are good. Will check echo for pericardial effusion. Remove binder/sling. OOB to chair. Pain management with Tylenol. Avoid narcotics. BP low overnight, hold Lisinopril. 11/27/16 09:39 11/27/16 09:42 Subjective: Pt complains of SOA. Sats normal. BP low overnight. Objective: Vital Signs Temp Pulse Resp BP Pulse Ox 36.6 C 67 24 H 94/64 L 96 11/27/16 07:41 11/27/16 07:41 11/27/16 07:41 11/27/16 07:41 11/27/16 07:41 Laboratory Results 11/27/16 04:10 11/27/16 04:10 11/26/16 11/27/16 11/28/16 05:59 05:59 05:59 Intake Total 180 500 Output Total 75 Balance 105 500 PT 14.5 SEC (12.0-15.0) 11/26/16 16:35 INR 1.14 (0.83-1.16) 11/26/16 16:35 Physical Exam - Physical Exam General Appearance: alert, mild distress EENT: PERRL/EOMI, pharynx normal Neck: full range of motion Respiratory: lungs clear, decreased breath sounds, No crackles, No rales Cardiac/Chest: normal peripheral pulses, regular rate, rhythm Abdomen: non-tender, soft Skin: normal color (wound site appears normal), warm/dry ICD10 Worksheet Patient Problems: Problems Problem Status Onset Transient cerebral ischemia Acute Syncope Acute
--- NOTE | 2016-11-27 09:59 | EPPROC ---
Electrophysiology Procedure Note: PROCEDURE PERFORMED: * Implantation of an A/V Pacemaker * Subclavian vein angiography * Fluoroscopy INDICATION: Symptomatic sinus arrest with escape junctional rhythm. PROCEDURE NOTE: Patient presented to the cardiac catheterization laboratory in a fasting, post absorptive state. Cardiac photo lab specialist nurse administered moderate sedation. The left infraclavicular area was prepped and draped in the usual sterile fashion. Lidocaine plus bupivacaine was used for local anesthesia. Left subclavian venography was performed by injection of iodinated contrast into the left antecubital vein. This was done to assure patency of the vein and also to assess for any anatomical aberrations. Using a combination of blunt and sharp dissection and electrocautery, the dissection was carried down to the prepectoral fascia. All bleeding was controlled with electrocautery. Fluoroscopy was utilized during the entire procedure for venous access and placement of the leads. Using the usual technique, left cephalic vein was accessed but it was small and hence wire could not be passed. Hence venogram was performed and left subclavian access was obtained. A glidewire was placed. Through this initially a 9F and later a 7F sheath was passed. Placement of the guidewires into the venous system was confirmed by low-pressure blood return and also by visualizing the guidewires advancing into the inferior vena cava. A purse string suture was applied around the guidewires. An active fixation ventricular lead was advanced into the right ventricular apex and screwed in place. An active fixation atrial lead was advanced into the right atrial appendage and screwed in place. The peel away sheaths were removed. Pacing thresholds, sensing parameters and lead impedances were measured. There was no diaphragmatic stimulation at maximum output. The leads were sutured to the prepectoral fascia with 3 nonabsorbable sutures each. The pocket was created and it was flushed using antibiotic solution. It was inspected for any bleeding. The leads were attached to the pacemaker securely. The pacemaker was inserted into the pocket and secured in place with a nonabsorbable suture. Fluoroscopy was performed in WATERS and RENETTA planes to verify right-sided placement of the leads. Also fluoroscopy of the pacemaker pocket was performed. The pacemaker pocket was closed in 3 layers with absorbable vicryl sutures. Steristrips were placed. Appropriate dressing was applied. The patient left the cardiac catheterization laboratory in stable condition. Serial Numbers: * Device: [employer] SPINE Eluna [address] HANNA [id number] * Atrial Lead: Biotronik SOlia S45 SN [id number] * Ventricular Lead: Biotronik Solia S53 SN [id number] Stimulation Thresholds & Impedance Measurements: * Atrial Lead 3.9 mV, 0.8@0.4ms, 546 Ohms * Ventricular Lead 12.9 mV, 0.4@0.4ms, 643Ohms Yung Pacing Parameters * Pacing mode: DDD * Lower rate: 60 * Upper tracking rate: 120 * Upper sensor rate: 120 Patient Problems: Problems Problem Status Onset Transient cerebral ischemia Acute Syncope Acute
--- NOTE | 2016-11-27 11:03 | ECHO ---
[id number] + + [address] : : [place] [address] : : [phone] + + Adult Echocardiographic Report + --------+ :Name: Shabbir ROSALES Date: 11/27/2016 09:47 AM BP: 101/72 mm Hg : : Hospital Admission Number: [id number] Locat ion: 244: :: 1930 Gender: Female : :Age: 86 yrs Race: WH : :Reason For Study: evaluate for pericardial effusion : :History: S/P pacemaker : + --------+ Conclusion Limited 2D echocardiogram to evaluate for a pericardial effusion s/p pacemaker. Trivial to small pericardial effusion noted. Final Reading Physician: Ricky Davila signed on 11/27/2016 11:02 AM Ordering Physician: Paul Ortiz Performed By: Dannielle Stubbs
[2016-11-27] MEDS: ASPIRIN EC 81 MG TAB PO SCH (11:54)
[2016-11-27] MEDS ORDERED: CEPACOL LOZENGE PO PRN (14:33)
[2016-11-27] MEDS ORDERED: LIDOCAINE 2% VISCOUS 15 ML UDCUP PO PRN (14:34)
--- NOTE | 2016-11-27 14:36 | HOSPPROG ---
Hospitalist Progress Note Assessment/Plan: Assessment: 86 yo F p/w acute generalized weakness Plan: 1. CVA. Acute, small area of infarct on R on MRI, possibly cardioembolic - per patient d/w Dr. Russell, pt does not want systemic anticoagulation or further w/u - added ASA 81 to her home dose of plavix - rec outpt neuro f/u 2. HTN. Chronic, holding home Rx given hypotension this AM 3. Sinus arrest w/ junctional escape rhythm. Acute, resulting in syncopal episode - POD#1 PPM, CXR w/o PTX - pain in LUE tx w/ tylenol and lidoderm patch - pain in throat tx w/ cepacol/lidocaine viscous 4. Moderate-Severe MR. Patient does not want intervention Diet. Cardiac PPx. High risk, lovenox tomorrow AM, SCDs Code. DNR per patient, MPOA Dispo. ADD 11/28 pending safe dispo options, patient/ do not want to go to SNF but it is very likely this will be her needed level of care, counseled son/daughter Subjective: Some ongoing pain in her left shoulder, some throat discomfort Objective: Vital Signs Temp Pulse Resp BP Pulse Ox 36.5 C 76 15 90/65 L 92 11/27/16 12:30 11/27/16 13:00 11/27/16 12:30 11/27/16 12:30 11/27/16 12:30 Laboratory Results 11/27/16 04:10 11/27/16 04:10 11/26/16 11/27/16 11/28/16 05:59 05:59 05:59 Intake Total 180 500 Output Total 75 Balance 105 500 PT 14.5 SEC (12.0-15.0) 11/26/16 16:35 INR 1.14 (0.83-1.16) 11/26/16 16:35 - Time Spent With Patient Time Spent with Patient: greater than 35 minutes Time Spent with Patient: Greater than 35 minutes spent on this patients care, greater than 50% of time spent counseling, educating, and coordinating care regarding the above mentioned plan. - Pending Discharge Pending Discharge Within 24 Hours: Yes Pending Discharge Date: 11/28/16 Pending Discharge Time: 11:00 - Physical Exam Constitutional: no apparent distress, uncomfortable Cardiovascular: systolic murmur (3/6 murmur at the apex), No irregularly irregular, No edema Gastrointestinal: normoactive bowel sounds, soft, non-tender abdomen, no palpable masses Skin: other (No erythema over the left chest) Neurologic: AAOx3, sensation intact bilaterally, No weakness (Motor 5/5 bilateral upper and lower extremity) Psychiatric: interacting appropriately, not anxious, not encephalopathic, thought process linear ICD10 Worksheet Patient Problems: Problems Problem Status Onset Transient cerebral ischemia Acute Syncope Acute
[2016-11-27] MEDS ORDERED: POLYETHYLENE GLYCOL 3350 17 GM PKT PO PRN (14:43)
[2016-11-27] MEDS ORDERED: BISACODYL 10 MG SUPP PR PRN (14:43)
[2016-11-27] MEDS ORDERED: MAGNESIUM HYDROXIDE 30 ML UDCUP PO PRN (14:43)
[2016-11-27] MEDS ORDERED: LACTULOSE 20 GM/30 ML UDCUP PO PRN (14:43)
[2016-11-27] MEDS ORDERED: NS 500 ML IV ONE (16:33)
[2016-11-27] MEDS ORDERED: NS 1,000 ML IV SCH (16:45)
[2016-11-27 18:45] LABS: ANION GAP 7 mEq/L (8-16); CALCIUM 8.6 mg/dL (8.5-10.4); CARBON DIOXIDE 24 mEq/l (22-31); CHLORIDE 107 mEq/L (97-110); GLOMERULAR FILTRATION RATE 52; GLUCOSE 126 mg/dL (70-100); MAGNESIUM 2.1 mg/dL (1.6-2.3); POTASSIUM 4.1 mEq/L (3.5-5.2); SODIUM 138 mEq/L (134-144)
[2016-11-27] MEDS: LIDOCAINE 5% 1 EA PATCH TD SCH (18:46)
[2016-11-27] MEDS: SENNOSIDES/DOCUSATE SODIUM TAB PO SCH (20:53)
[2016-11-27] MEDS: LORazepam 1 MG TAB PO SCH (20:53)
[2016-11-27] MEDS: PATCH REMOVAL 1 EA PATCH TD SCH (23:59)
[2016-11-28 05:09] LABS: % IMMATURE GRANULYOCYTES 0.4 % (0.0-1.1); ABSOLUTE IMMATURE GRANULOCYTES 0.03 10^3/uL (0.00-0.10); ADD DIFF? NO; ADD MORPH? NO; ADD SCAN? NO; ATYPICAL LYMPHOCYTE FLAG 0 (0-99); FRAGMENT RBC FLAG 0 (0-99); HEMATOCRIT 35.6 % (38.0-47.0); HEMOGLOBIN 11.4 g/dL (12.6-16.3); LEFT SHIFT FLG 10 (0-99); LIPEMIA HEMOLYSIS FLAG 80 (0-99); MEAN CELL VOLUME 90.6 fL (81.5-99.8); MEAN PLATELET VOLUME 10.7 fL (8.7-11.7); PLATELET CLUMPS FLAG 0 (0-99); PLATELET COUNT 190 10^3/uL (150-400); RED BLOOD CELL COUNT 3.93 10^6/uL (4.18-5.33); RED CELL DISTRIBUTION WIDTH 14.4 % (11.5-15.2)
[2016-11-28 05:26] LABS: CALCIUM 8.4 mg/dL (8.5-10.4); CARBON DIOXIDE 24 mEq/l (22-31); CHLORIDE 110 mEq/L (97-110); CREATININE 0.8 mg/dL (0.6-1.0); GLOMERULAR FILTRATION RATE > 60; GLUCOSE 92 mg/dL (70-100); SODIUM 139 mEq/L (134-144)
[2016-11-28 05:52] LABS: ANION GAP 5 mEq/L (8-16); POTASSIUM 4.1 mEq/L (3.5-5.2)
[2016-11-28] MEDS: LEVOTHYROXINE 88 MCG TAB PO SCH (06:22)
[2016-11-28] MEDS: CLOPIDOGREL BISULFATE 75 MG TAB PO SCH (08:38)
[2016-11-28] MEDS: FLUoxetine 20 MG CAP PO SCH (08:38)
[2016-11-28] MEDS: LIDOCAINE 5% 1 EA PATCH TD SCH (08:39)
[2016-11-28] MEDS: ASPIRIN EC 81 MG TAB PO SCH (08:44)
[2016-11-28] MEDS: SENNOSIDES/DOCUSATE SODIUM TAB PO SCH ×2 (09:00→20:46)
[2016-11-28] MEDS: ENOXAPARIN 40 MG/0.4 ML SYR SC SCH (10:00)
--- NOTE | 2016-11-28 12:08 | SOAPPROG ---
SOAP Progress Note Assessment/Plan: Assessment/Plan This is a 86 yr old with symptomatic sinus arrest with escape junctional rhythm who had a pacemaker implanted. Post pacemaker she is complaining of SOA. CXR shows well placed leads with no pneumothorax. Pt continues to have episodes of near syncope. BP low hold Lisinopril. Increase fluid intake. Compression stockings. Consult neurology for possible neuropathy related to Parkinson's disease. 11/28/16 12:05 Subjective: Pt had another episode of presyncope and had low BP at that time. Vpaced rhythm noted at that time, likely because of concomittant paroxysmal Av block. Objective: Vital Signs Temp Pulse Resp BP Pulse Ox 36.6 C 77 14 123/80 H 97 11/28/16 11:51 11/28/16 11:51 11/28/16 11:51 11/28/16 11:51 11/28/16 11:51 Laboratory Results 11/28/16 04:14 11/28/16 04:14 11/27/16 11/28/16 11/29/16 05:59 05:59 05:59 Intake Total 180 2450 Output Total 75 Balance 105 2450 PT 14.5 SEC (12.0-15.0) 11/26/16 16:35 INR 1.14 (0.83-1.16) 11/26/16 16:35 Physical Exam - Physical Exam General Appearance: alert, no apparent distress EENT: PERRL/EOMI, normal ENT inspection, No scleral icterus (R), No scleral icterus (L) Neck: non-tender, supple Respiratory: lungs clear, normal breath sounds Cardiac/Chest: regular rate, rhythm, No edema Abdomen: normal bowel sounds, non-tender, soft Skin: normal color, warm/dry ICD10 Worksheet Patient Problems: Problems Problem Status Onset Transient cerebral ischemia Acute Syncope Acute
--- NOTE | 2016-11-28 15:36 | NEUROPROG ---
Assessment: 1. Stroke 2. Convulsive syncope 3. Cardiac dysrhythmia 4. Vascular Parkinsonism 5. Dementia 35 Total minutes [id number] time; over 50% counseling family and patient regarding the following: Initial small infarct diagnosed on admission, cryptogenic in etiology, query cardioembolic. The patient does not want further evaluation nor does she want oral anticoagulation. Therefore, we decided to add a baby aspirin to her Plavix 75 mg daily. The patient also has dementia and vascular parkinsonism. Lastly, she was found to have a cardiac dysrhythmia and had pacemaker placed. The patient had a convulsive syncopal episode from her dysrhythmia. She has done well status post pacemaker placement. Last night, she had a vasovagal episode with near-syncope. We discussed at length At great length. She will wear compression stockings and increase p.o. fluids. Antihypertensive medication for Hospital Medicine and Cardiology. She will follow-up with me as an outpatient 6-8 weeks to consider adding a small dose of dopaminergic medication for her parkinsonism. This will be mainly for her motor symptoms. For autonomic symptomatology, fluids and compression stockings will certainly be helpful. I will look forward to seeing her as an outpatient. the patient will likely discharge in the near future to inpatient rehabilitation. We will continue to follow this very pleasant patient as needed. Subjective: Near syncopal episode, vasovagal yesterday Objective: Vital Signs Temp Pulse Resp BP Pulse Ox 36.6 C 77 14 123/80 H 97 11/28/16 11:51 11/28/16 11:51 11/28/16 11:51 11/28/16 11:51 11/28/16 11:51 Laboratory Results 11/28/16 04:14 11/28/16 04:14 11/27/16 11/28/16 11/29/16 05:59 05:59 05:59 Intake Total 180 2450 Output Total 75 Balance 105 2450 PT 14.5 SEC (12.0-15.0) 11/26/16 16:35 INR 1.14 (0.83-1.16) 11/26/16 16:35 patient is awake and alert, very pleasant, talkative patient gait is unsteady, very short stride length parkinsonian Allergies/Adverse Reactions: Sulfa (Sulfonamide Antibiotics) Allergy (Unknown, Verified 11/25/16 04:55)
--- NOTE | 2016-11-28 15:45 | HOSPPROG ---
Hospitalist Progress Note Assessment/Plan: Assessment: 86 yo F p/w acute generalized weakness Plan: 1. CVA. Acute, small area of infarct on R on MRI, possibly cardioembolic vs. watershed infarct in setting of dysautonomia/hypotension - d/w Dr. Russell, pt does not want systemic anticoagulation or further w/u for afib - added ASA 81 to her home dose of plavix - rec outpt neuro f/u 2. HTN. Chronic, holding home Rx, goal SBP 120-140 3. Sinus arrest w/ junctional escape rhythm. Acute, resulting in syncopal episode - POD#2 PPM - pain in LUE tx w/ tylenol and lidoderm patch - pain in throat tx w/ cepacol/lidocaine viscous - d/w Dr. Ortiz, ventricular complexes resulting in near syncopal episode 3/25 PM likely ventricular PPM firing during dysautonomia 4. Moderate-Severe MR. Patient does not want intervention 5. 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 Likely cause of near syncopal/ syncopal events - start KESHIA hose - plan to start sinemet as outp - counseled family that low grades events likely to persist despite tx - experiencing retropulsion w/ PT, will need either SNF vs. inpt rehab Diet. Cardiac PPx. High risk, TEDs, patient declining other forms Code. DNR per patient, MPOA Dispo. ADD 11/29 to either SNF vs. inpt rehab, getting evals, plan for CM to meet w/ family to finalize tomorrow Subjective: Patient very talkative today Objective: Vital Signs Temp Pulse Resp BP Pulse Ox 36.6 C 77 14 123/80 H 97 11/28/16 11:51 11/28/16 11:51 11/28/16 11:51 11/28/16 11:51 11/28/16 11:51 Laboratory Results 11/28/16 04:14 11/28/16 04:14 11/27/16 11/28/16 11/29/16 05:59 05:59 05:59 Intake Total 180 2450 Output Total 75 Balance 105 2450 PT 14.5 SEC (12.0-15.0) 11/26/16 16:35 INR 1.14 (0.83-1.16) 11/26/16 16:35 - Time Spent With Patient Time Spent with Patient: greater than 35 minutes Time Spent with Patient: Greater than 35 minutes spent on this patients care, greater than 50% of time spent counseling, educating, and coordinating care regarding the above mentioned plan. - Pending Discharge Pending Discharge Within 24 Hours: Yes Pending Discharge Date: 11/29/16 Pending Discharge Time: 11:00 - Physical Exam Constitutional: other (Elderly appearing) Ears, Nose, Mouth, Throat: hard of hearing Skin: other (Ecchymoses at the pacemaker site, no surrounding erythema) Neurologic: AAOx3, other (Left lateral eye deviation, left facial palsy) Psychiatric: other (Talkative, mildly confused) ICD10 Worksheet Patient Problems: Problems Problem Status Onset Syncope Acute Transient cerebral ischemia Acute
[2016-11-28] MEDS: PRAVASTATIN SODIUM 20 MG TAB PO SCH (20:46)
[2016-11-28] MEDS: LORazepam 1 MG TAB PO SCH (20:47)
[2016-11-28] MEDS: PATCH REMOVAL 1 EA PATCH TD SCH (20:47)
[2016-11-29] MEDS: LEVOTHYROXINE 88 MCG TAB PO SCH (08:39)
[2016-11-29] MEDS: ASPIRIN EC 81 MG TAB PO SCH (08:39)
[2016-11-29] MEDS: FLUoxetine 20 MG CAP PO SCH (08:39)
[2016-11-29] MEDS: CLOPIDOGREL BISULFATE 75 MG TAB PO SCH (08:40)
[2016-11-29] MEDS: LIDOCAINE 5% 1 EA PATCH TD SCH (08:41)
[2016-11-29] MEDS: SENNOSIDES/DOCUSATE SODIUM TAB PO SCH ×2 (08:41→20:25)
[2016-11-29] MEDS ORDERED: LISINOPRIL 2.5 MG TAB PO SCH (09:30)
--- NOTE | 2016-11-29 14:44 | HOSPPROG ---
Hospitalist Progress Note Assessment/Plan: Assessment: 86 yo F p/w acute generalized weakness in setting of acute cerebellar CVA, vascular parkinson's, convulsive syncope Plan: 1. CVA. Acute, small area of infarct on R on MRI, possibly cardioembolic vs. watershed infarct in setting of dysautonomia/hypotension - per Dr. Russell, pt does not want systemic anticoagulation or further w/u for afib - added ASA 81 to her home dose of plavix - rec outpt neuro f/u - will require ongoing SNF rehab 2. HTN. Chronic, holding home Rx, goal SBP 120-160 - orthostatics today neg, SBP 120s 3. Sinus arrest w/ junctional escape rhythm. Acute, resulting in syncopal episode - POD#3 PPM - pain in LUE tx w/ tylenol and lidoderm patch - pain in throat tx w/ cepacol/lidocaine viscous - ventricular complexes resulting in near syncopal episode 3/25 PM likely ventricular PPM firing during dysautonomia 4. Moderate-Severe MR. Patient does not want intervention 5. 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 Likely cause of near syncopal/ syncopal events - started KESHIA quyene, counseled patient that thigh high best - plan to start sinemet as outpt - counseled family that low grades events likely to persist despite tx - counseled patient on need for SNF, currently family is visiting facilities, [facility] and [facility] auth pending Diet. Cardiac PPx. High risk, TEDs, patient declining other forms Code. DNR per patient, MPOA Dispo. ADD 11/30 to SNF once approved Subjective: Patient is very thankful for the care she is receiving, she is agreeable to a [facility] facility once located, she continues to require assistance with transfer, she believes I'm a sweet [place] Objective: Vital Signs Temp Pulse Resp BP Pulse Ox 36.6 C 89 20 138/81 H 92 11/29/16 12:00 11/29/16 12:00 11/29/16 12:00 11/29/16 12:00 11/29/16 12:00 Laboratory Results 11/28/16 04:14 11/28/16 04:14 11/28/16 11/29/16 11/30/16 05:59 05:59 05:59 Intake Total 2450 1000 Output Total 1150 Balance 2450 -150 PT 14.5 SEC (12.0-15.0) 11/26/16 16:35 INR 1.14 (0.83-1.16) 11/26/16 16:35 - Time Spent With Patient Time Spent with Patient: greater than 35 minutes Time Spent with Patient: Greater than 35 minutes spent on this patients care, greater than 50% of time spent counseling, educating, and coordinating care regarding the above mentioned plan. - Physical Exam Constitutional: no apparent distress, not in pain, chronically ill appearing, No uncomfortable Eyes: other (Discuss conjugate gaze with left eye deviated to lateral area) Skin: other (Ecchymoses inferior to the left shoulder pacemaker site, no induration, no erythema, minimal tenderness) Psychiatric: interacting appropriately, not anxious, not encephalopathic, thought process linear ICD10 Worksheet Patient Problems: Problems Problem Status Onset Syncope Acute Transient cerebral ischemia Acute
--- NOTE | 2016-11-29 16:11 | PDCARPN ---
Cardiology Progress Note Chief Complaint: Patient reports fatigue symptoms. Assessment/Plan: Assessment: 86-year-old female with symptomatic sinus arrest with escape junctional rhythm with ppm implantation (Biotronik generator, atrial, and ventricular leads) placed on 11/26/2016. Patient also has significant history that includes moderate dementia, hypertension, previous CVA, dyslipidemia, hypothyroidism, sleep apnea. Echocardiogram done on 11/26/2016 showed normal LV systolic function mild concentric LVH EF 70-75%, diastolic dysfunction, LA severely dilated, moderate to severe mitral leaflet calcification, moderate MR, mild TR, RVSP normal, mild aortic valve calcification, mild AI. On 11/27, device check showed showing functioning within normal limits, chest x-ray showing no acute cardiopulmonary process, no pneumothorax. Patient reporting shortness of breath , repeated echocardiogram showed trivial pericardial effusion noted. Yesterday patient reporting lightheadedness with positional changes, noted to be hypotensive, support stockings ordered, lisinopril discontinued. Orthostatic blood pressures done by myself today showed supine blood pressure of 122/78, heart rate 74, standing blood pressure 127/80, heart rate 84. Patient denies of any lightheadedness. PPM incision, left anterior chest, appears intact with Steri-Strips, ecchymosis around site, no hematoma, bleeding, redness, swelling, or drainage. She has remained afebrile. Cardiac monitoring shows AV paced. No malignant arrhythmias or pauses. Plan: 1. Sinus arrest with junctional escape rhythm: Ppm implantation done, patient planning to be discharged custodial facility today, follow-up wound and device check made for next week. Dressing change done. Post ppm implantation instructions went over with patient and family. 2. Hypertension: Noted to be mildly hypotensive yesterday, with episodes of lightheadedness positional changes. Home dose of lisinopril/hydrochlorothiazide on hold. Will continue to hold, re-evaluate in outpatient setting. 3. Moderate to severe MR: Patient and family have chosen no intervention at this time, continue with medical management. 4. Near-syncope: Near syncopal episode status post pacemaker implantation noted to be hypotensive, potentially felt that this could also be due to dsyautonomia from Parkinson's. Support stockings, continue holding blood pressure medication. Encouraged fluid intake. 5. CVA: Patient continue on aspirin and Plavix therapy, patient family refuses full anticoagulation. Patient follow up with Neurology as planned As mentioned above, patient is planning to be discharged today, post pacemaker instructions given to patient and her family, she has been range for 1 week office visit for wound and device check, 1 month follow-up visit with Dr. Ortiz. She will be seen sooner if necessary. 11/29/16 16:08 Subjective: Patient denies of any chest pressure pain palpitations lightheadedness, near- syncope or syncopal events. Reviewed/Discussed With: hospitalist (Dr Crocker), other (Dr Sultana) Objective: Vital Signs (8 Hrs) Temp Pulse Resp BP Pulse Ox 11/29/16 12:00 36.6 C 89 20 138/81 H 92 11/29/16 09:16 122/78 H Intake/Output (24 Hrs) 11/28/16 11/29/16 11/30/16 05:59 05:59 05:59 Intake Total 2450 1000 Output Total 1150 Balance 2450 -150 Intake: Oral (ml) 650 1000 IV Infused (ml) 1800 Ns 1,000 ml @ As Directed 100 IV KVO LATRICE Rx#: [id number] Ns 500 ml @ Wide Open IV 1700 ONCE ONE Rx#:[id number] Output: Urine (ml) 1150 Bedside Commode 1150 Other: Number of Voids Bedpan 2 Bedside Commode 1 2 Number of Stools Bedside Commode 1 Result Diagrams: 11/28/16 04:14 11/28/16 04:14 - Physical Exam Constitutional: WDWN, no apparent distress Ears, Nose, Mouth, Throat: moist mucous membranes Cardiovascular: regular rate and rhythm, no gallops, systolic murmur (2-3/6 systolic murmur noted along left sternal border.), pulses symmetric bilat, No jugular vein distention, No carotid bruit Peripheral Pulses: 1+: dorsalis-pedis (R), dorsalis-pedis (L), 2+: carotid (R), carotid (L) Respiratory: other (Lungs clear in upper lobes, diminished in bases bilateral, no rhonchi, rales, or wheezing noted, no accessory muscle use, no intercostal muscle retraction noted) Gastrointestinal: normoactive bowel sounds Skin: warm, other (Pacemaker incision intact with Steri-Strips, ecchymoses noted , but no redness, swelling, drainage, bleeding, or hematoma.), No no edema (+1 peripheral edema bilateral lower extremities.) Neurologic: other (AAO x2 to person and place. Uncertain of time and situation.) Psychiatric: cooperative, interactive ICD10 Worksheet Patient Problems: Problems Problem Status Onset Syncope Acute Transient cerebral ischemia Acute
[2016-11-29] MEDS: PRAVASTATIN SODIUM 20 MG TAB PO SCH (18:32)
[2016-11-29] MEDS: LORazepam 1 MG TAB PO SCH (20:25)
[2016-11-29] MEDS: PATCH REMOVAL 1 EA PATCH TD SCH (22:39)
[2016-11-30 08:15] VITALS: RESP 18; TEMP 98.6; O2SAT 94
--- NOTE | 2016-11-30 09:14 | PDIAF ---
- Diagnosis Diagnosis: Acute cerebellar CVA, sinus arrest w/ PPM, convulsive syncope Code Status: Do Not Resuscitate - Medication Management Discharge Medications: Medications to Continue on Transfer Ascorbic Acid [Vitamin C 500 mg (*)] 500 mg PO DAILY 08/24/12 [Last Taken ] Clopidogrel Bisulfate [Plavix (*)] 75 mg PO DAILY 08/24/12 [Last Taken 11/24/16] FLUoxetine [Prozac 10 MG (*)] 20 mg PO DAILY 08/24/12 [Last Taken 11/24/16] LORazepam [Ativan (*)] 1 mg PO HS 08/24/12 [Last Taken 11/24/16] Levothyroxine [Synthroid 88 mcg (*)] 44 mcg PO DAILY06 08/24/12 [Last Taken ] Multivitamins [Multivitamin (*)] 1 each PO MOWEFR@0900 08/24/12 [Last Taken ] Simvastatin [Zocor 10 mg] 10 mg PO DAILY@1800 08/24/12 [Last Taken 11/24/16] Acetaminophen [Tylenol 325mg (*)] 650 mg PO Q4HRS PRN #0 tab 11/30/16 [Last Taken Unknown] Aspirin EC [Aspirin EC 81 mg (*)] 81 mg PO DAILY tab 11/30/16 [Last Taken Unknown] Benzocaine/Menthol 15/4 [Cepacol Lozenge] 1 ea PO PRN PRN #0 lozenge 11/30/16 [ Last Taken Unknown] Lidocaine 5% [Lidoderm 5% Patch (*)] 1 ea TD DAILY patch 11/30/16 [Last Taken Unknown] Lisinopril 2.5 mg PO DAILY #30 tablet 11/30/16 [Last Taken Unknown] Patch Removal 1 ea TD DAILY21 patch 11/30/16 [Last Taken Unknown] Greens Or Grounds Superintendent Antibiotics: NA Discharge Medications: Refer to the Discharge Home Medication list for PRN reason. PICC Care - Routine: N/A - Orders Services needed: Registered Nurse, Master Machine Driller, Physical Therapy, Occupational Therapy, Speech Language Pathologist Oxygen: NA Diet Texture: Regular Texture Diet, Thin Liquids, Meds Whole w/Liquids Allen: Not applicable Keshia Stockings Discontinue Date: continue thigh high KESHIA hose Wound Care Instructions: routine PPM wound care, see DC Instructions Activity/Weight Bearing Restrictions: as eulalio w/ walker Additional: please see discharge summary for full description of how to handle "fainting" spells - Follow Up Care Current Providers and Referrals: Patient,NotPresent [Primary Care Provider] - As per Instructions Judson Russell MD [Medical Doctor] - follow up in 2 weeks Paul Ortiz MD [Medical Doctor] - (Follow up for device and wound check on December 02 at 10:00 a.m. at [facility] office Follow up with Dr Ortiz on December 29 at 10:00 a.m..)
--- NOTE | 2016-11-30 09:27 | PDDCSUM ---
Discharge Summary Discharge Summary: DISCHARGE SUMMARY FOLLOW-UP ITEMS: Device check on December 02, monitor outpatient blood pressure, consider initiating Parkinson's disease medications as an outpatient DATE OF ADMISSION: 11/25/2016 DATE OF DISCHARGE: 11/30/2016 DISCHARGE DIAGNOSES: 1. Acute cerebellar CVA 2. 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 Moderate to severe mitral regurgitation 4. 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 Convulsive syncope 6. Chronic hypertension CONSULTATIONS: Cardiology, Neurology PROCEDURES / IMAGING: Permanent pacemaker placed CHIEF COMPLAINT: Acute weakness SUBJECTIVE: Patient had difficulty sleeping last night, she is otherwise feeling well PHYSICAL EXAM ON DISCHARGE: Systolic blood pressure is 140-160, heart rate in the 80s, alert awake oriented x3 no apparent distress, left eye has lateral deviation comma ecchymoses at the left shoulder without any surrounding erythema or induration, motor strength is 4/5 bilateral lower extremities, 5/5 right upper extremity, 4/5 left upper extremity and somewhat limited by pain on range of motion of left shoulder, left mouth palsy LABS ON DISCHARGE: Hemoglobin 11.4, white blood cell count 7.9, potassium 4.1 creatinine 0.8 HOSPITAL COURSE BY PROBLEM: 1. Acute cerebellar CVA. The patient presented with generalized weakness in the setting of acute cerebellar CVA which may have been a watershed infarct in the setting of Parkinson's disease dysautonomia and transiently low blood pressure. MRI confirmed the infarct in the right cerebellum the patient was seen by Neurology. She was continued on Plavix and statin, aspirin 81 mg was added. The patient's residual deficits include left lateral eye deviation, left mouth palsy, minor left upper extremity weakness, Minor bilateral lower extremity weakness and slightly impaired gait. The patient will go to a long-term facility for rehab and her goal is to return home with her thereafter. She should follow up with Dr. connolly in the outpatient setting. 2. 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 The patient has been experiencing syncopal episodes most likely secondary to junctional escape rhythm resulting in sinus arrest. This was noted on telemetry which corresponded to 1 of her symptomatic events. This event resulted in a convulsive syncope but not an actual seizure. She was seen in consultation by Cardiology and permanent pacemaker was placed. She did experience 1 subsequent symptomatic event after pacemaker was placed and Cardiology determined that this was most likely secondary to recurrence of her dysautonomia with resultant ventricular pacing on her device, resulting in near syncope but not true syncope. Consequently, cardiology has made some device adjustments and they will see her for device check on December 02. Additionally, we recommend that the patient is receiving facility as well as her family understand that these events of near syncope will most likely continue to occur given that her dysautonomia is secondary to a suspected chronic Parkinson's disease. That being said, the patient's pacemaker should pace her during these events and prevent her from true losing consciousness. She will most likely feel like she is about to pass out and she should be safely lowered into a supine position either on the floor or on the couch or bed. Leg should be raised to increase her blood pressure. The symptoms will most likely last for several seconds. If she returns to normal quickly, she does not require further hospitalization or immediate medical intervention for this issue. Rather, I would recommend that the cardiology office be contacted and the patient have a nonemergent outpatient follow-up appointment for device check as well as discussion of her symptoms. 3. 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 The patient was seen in consultation by Neurology and it was suspected that the patient has been developing Parkinson's disease as defined by shuffling gait, dysautonomia, progressive cognitive impairment. Consequently KESHIA hose were recommended thigh- high if possible and the family was extensively counseled that these episodes of dysautonomia will most likely continue to occur, albeit should be of lower grade symptoms then the ones resulting in this initial presentation. As mentioned above, the preferred intervention is lowering the patient into a safe comma supine position and allowing her blood pressure to Re-equilibrate. She should have an outpatient follow-up appointment scheduled with Dr. Russell and Sinemet will be considered in the outpatient setting. 4. Moderate to severe mitral regurgitation. The patient had this noted on echocardiogram, this has been noted in the past, the patient does not want surgical intervention. 5. Chronic hypertension. The patient has previously been on lisinopril HCT 5/ 6.125, and this was held during this hospitalization secondary to low blood pressures. That being said, patient's blood pressure began to raise and was between 140-160 at time of discharge. Her orthostatics were negative. The decision was made to reinitiate low-dose lisinopril single agent at 2.5 mg daily and have blood pressure check on December 02 when she is at [facility]. Her goal blood pressure is 120 to 160, with recommendations to hold lisinopril if her systolic blood pressures are less than 120. DISCHARGE MEDICATIONS: Please see official discharge medication reconciliation sheet in chart , addition of aspirin 81 mg daily, addition of lisinopril 2.5 mg daily, Lidoderm patch on the shoulder. DISCHARGE INSTRUCTIONS: Patient will follow up with [facility] on December 02, Dr. uRssell thereafter, and Dr. Ortiz on December 29 TIME SPENT: Greater than 30 minutes were spent on direct patient care, as well as discharge planning and preparation.
[2016-11-30] MEDS: LEVOTHYROXINE 88 MCG TAB PO SCH (09:32)
[2016-11-30] MEDS: ASPIRIN EC 81 MG TAB PO SCH (10:26)
[2016-11-30] MEDS: CLOPIDOGREL BISULFATE 75 MG TAB PO SCH (10:26)
[2016-11-30] MEDS: FLUoxetine 20 MG CAP PO SCH (10:27)
[2016-11-30] MEDS: LIDOCAINE 5% 1 EA PATCH TD SCH (10:31)
[2016-11-30] MEDS: SENNOSIDES/DOCUSATE SODIUM TAB PO SCH (10:36)
[2016-11-30 10:39] VITALS: BP 130/83; PULSE 85
--- NOTE | 2016-11-30 14:07 | PDCARPN ---
Cardiology Progress Note Chief Complaint: Patient reports ongoing fatigue symptoms. Assessment/Plan: Assessment: Patient was seen at a 11:45 a.m., prior to discharge. 86-year-old female with significant history that includes moderate dementia, hypertension, previous CVA, dyslipidemia, hypothyroidism, sleep apnea. Noted to have symptomatic sinus arrest with escape junctional rhythm with ppm implantation (Biotronik) on 11/26/2016. Echocardiogram done on 11/26/2016 showed normal LV systolic function with mild concentric LVH, EF 70-75%, diastolic dysfunction, LA severely dilated, moderate to severe mitral leaflet calcification, moderate MR, mild TR, RVSP normal, mild aortic valve calcification, mild AI. Post pacemaker implantation patient reporting lightheadedness with positional changes, noted be hypotensive, support stockings order, lisinopril dose discontinued. Orthostatic blood pressures today showed no significant gradient from supine to standing. Systolic blood pressures been running 140s to 160s. Monitor shows sinus rhythm with occasional paced beat. [place] by Neurology near syncopal events could be due to dyautonomia from possible Parkinson's disease. Patient has been seen by Neurology. Have discussed with Dr. Ortiz. Patient today remains AAO x2, operative, with no complaints of chest pressure, shortness of breath, near- syncope or syncopal event. Awaiting placement at a [facility] facility. He had no significant arrhythmias, or pauses noted on continuous cardiac monitoring. Plan: 1. Sinus arrest with junctional escape rhythm: Ppm implantation done, due to recent lightheaded events, [employer]ron[employer] rep has increased low rhythm to 70 BPM, and increase CLS, per Dr. Grewal request. PPM site noted with ecchymoses, but incision intact, dressings CDI. No swelling, redness, or drainage noted. Wound and device check set for of this week at [facility]. 2. Hypertension: Improvement in blood pressures yesterday, will resume her on half dose of her usual home dose of lisinopril at 2.5 mg p.o. q.day. Have asked our nursing staff for when she follows up in office to do a blood pressure and notify me with results. 3. Moderate MR: Patient's family has chosen no intervention at this time. Continue medical management. 4. Near-syncope: Orthostatic blood pressures were improvement today, pacemaker checks as made as above. Support stockings, encouraged hydration. 5. CVA: Patient continue on aspirin and clopidogrel. Patient's family refuses full anticoagulation. Patient to follow up with Neurology as an outpatient. 11/30/16 14:06 Subjective: Patient denies of any chest pressure, pain, lightheadedness. Denies of any shortness of breath. Reviewed/Discussed With: hospitalist (Dr Crocker), other (Dr Ortiz) Objective: Vital Signs (8 Hrs) Temp Pulse Pulse Pulse Pulse Resp BP 11/30/16 10:38 83 92 85 11/30/16 08:00 37.0 C 74 18 157/99 H BP BP BP Pulse Ox 11/30/16 10:38 122/86 H 137/89 H 130/83 H 11/30/16 08:00 94 Intake/Output (24 Hrs) 11/29/16 11/30/16 12/01/16 05:59 05:59 05:59 Intake Total 1000 930 Output Total 1150 200 Balance -150 730 Intake: Oral (ml) 1000 930 Output: Urine (ml) 1150 200 Bedside Commode 1150 200 Other: Intake Quantity Yes Sufficient Number of Voids Bedside Commode 2 1 Toilet 3 1 Number of Stools Toilet 1 1 Result Diagrams: 11/28/16 04:14 11/28/16 04:14 - Physical Exam Constitutional: healthy appearing, no apparent distress Ears, Nose, Mouth, Throat: moist mucous membranes Cardiovascular: regular rate and rhythm, systolic murmur (1-2/6 systolic murmur noted along left sternal border.), pulses symmetric bilat, No jugular vein distention, No carotid bruit Peripheral Pulses: 1+: dorsalis-pedis (R), dorsalis-pedis (L), 2+: carotid (R), carotid (L) Respiratory: other (Lungs clear, but diminished in bases bilateral, no rhonchi, rales, or wheezing noted. No accessary muscle use, no intercostal muscle retraction) Skin: warm, No no edema Neurologic: other (Patient alert to person and place, not to situation in time.) Psychiatric: cooperative, interactive, following commands ICD10 Worksheet Patient Problems: Problems Problem Status Onset Syncope Acute Transient cerebral ischemia Acute
== END 2016-11-30 12:25 | DRG 42 ==
LOC: EDUNIT# → INTOOBSV 05:23 → F2N 08:34 → OBSVTOIN 11-26 09:52 → F2N 11-26 17:59 → F2W 11-27 12:15
PROVIDERS: ADMIT Internal Medicine; ATTEND Internal Medicine
DX: I63.9 Cerebral infarction, unspecified (principal); I45.5 Other specified heart block; G20 Parkinson's disease; I10 Essential (primary) hypertension; I34.0 Nonrheumatic mitral (valve) insufficiency; Z66 Do not resuscitate; E78.5 Hyperlipidemia, unspecified; E03.9 Hypothyroidism, unspecified
CPT/HCPCS: 82947-QW; 92523-GN; 92610-GN; 97112-GP; 97116-GP; 97161-GP; 97164-GP; 97165-GO; 97168-GO; 97530-GP; 97535-GO; C1769; C1785; C1898; G0378; G8978-GP-CJ; G8978-GP-CK; G8979-GP-CJ; J0690; J1650; J2250; J3010; Q9967